=== PATIENT | female | born 1960 | race African-American/Black ===

== ENCOUNTER → 2019-06-06 13:54 | Outpatient (CLI) | payer OTHER, SELFPAY ==
[2019-06-06 14:52] LABS: Alanine Aminotransferase 36 U/L (12-78); Albumin Level 3.9 gm/dL (3.4-5.0); Albumin/Globulin Ratio 1.1 (1.1-1.8); Alkaline Phosphatase 101 U/L (46-116); Anion Gap 12.5 mEq/L (5-15); Aspartate Amino Transferase 32 U/L (15-37); Bilirubin,Total 0.6 mg/dL (0.2-1.0); Blood Urea Nitrogen 16 mg/dL (7-18); Calcium 9.7 mg/dL (8.5-10.1); Carbon Dioxide 28 mmol/L (21.0-32.0); Chloride 103 mmol/L (98-107); Chol/HDL Ratio 1.8 (1-3.5); Cholesterol 178 mg/dL (140-200); Creatinine,Serum 0.89 mg/dL (0.55-1.02); Estimated Glomerular Filt Rate 65 ml/min (>60); GFR (African American) 79 ML/MIN (>60); Globulin 3.5 gm/dl (1.3-3.2); Glucose 83 mg/dL (74-106); HDL Cholesterol 98 mg/dL (29-89); LDL Cholesterol 70 mg/dL (0-130); Potassium 3.5 mmoL/L (3.5-5.1); Sodium 140 mmol/L (136-145); T4 (Thyroxine) 11.4 ug/dl (4.7-13.3); Thyroid Stimulating Hormone 2.77 uIU/ml (0.358-3.740); Total Protein,Serum 7.4 gm/dL (6.4-8.2); Triglycerides 48 mg/dL (30-200); VLDL Cholesterol 10 mg/dL (0-40)
[2019-06-06 17:27] LABS: Basophils % 0.4 % (0.1-2.0); Eosinophils # 0.2 K/mm3 (0.0-0.4); Eosinophils % 5.1 % (0.1-12.0); Hematocrit 41.5 % (37.0-47.0); Hemoglobin 13.3 g/dL (12.2-16.2); Lymphocytes # 1.6 K/mm3 (0.7-4.5); Lymphocytes % 41.4 % (10-50); Mean Corpuscular HGB Conc 32.1 g/dL (31.8-35.4); Mean Corpuscular Hemoglobin 30.1 pg (27.0-31.2); Mean Platelet Volume 8.9 fl (7.4-10.4); Monocytes # 0.4 K/mm3 (0.1-1.0); Neutrophils # 1.6 K/mm3 (1.8-7.8); Platelet Count 207 K/mm3 (142-424); Red Blood Count 4.41 M/mm3 (4.20-5.40); Red Cell Distribution Width 13.4 % (11.5-17.5); White Blood Count 3.8 K/mm3 (4.8-10.8)
[2019-06-07 10:32] LABS: Vitamin D 25 Hydroxy 13.9 ng/mL (30.0-100.0)
== END ==
PROVIDERS: Visit Provider Nurse Practitioner Family
DX: I10 Essential (primary) hypertension (principal); E55.9 Vitamin D deficiency, unspecified
CPT/HCPCS: 80053; 80061; 82652; 84436; 84443; 85025

== ENCOUNTER → 2020-05-30 10:24 | Outpatient (CLI) | payer OTHER, SELFPAY ==
[2020-05-30 10:53] LABS: Eosinophils # 0.2 K/mm3 (0.0-0.4); Eosinophils % 4.5 % (0.1-12.0); Hematocrit 39.3 % (37.0-47.0); Hemoglobin 13.5 g/dL (12.2-16.2); Lymphocytes # 1.6 K/mm3 (0.7-4.5); Lymphocytes % 46.7 % (10-50); Mean Corpuscular HGB Conc 34.4 g/dL (31.8-35.4); Mean Corpuscular Volume 93.1 fl (81-99); Mean Platelet Volume 8.3 fl (7.4-10.4); Monocytes # 0.4 K/mm3 (0.1-1.0); Monocytes % 10.6 % (1.7-9.3); Neutrophils # 1.3 K/mm3 (1.8-7.8); Neutrophils % 37.3 % (37.0-80.0); Platelet Count 178 K/mm3 (142-424); Red Blood Count 4.22 M/mm3 (4.20-5.40); Red Cell Distribution Width 13.3 % (11.5-17.5); White Blood Count 3.4 K/mm3 (4.8-10.8)
[2020-05-30 11:23] LABS: Alanine Aminotransferase 28 U/L (12-78); Albumin Level 4.3 g/dl (3.5-5.0); Albumin/Globulin Ratio 1.3 (1.1-1.8); Alkaline Phosphatase 102 U/L (38-126); Anion Gap 10.1 mEq/L (5-15); Aspartate Amino Transferase 45 U/L (14-36); Bilirubin,Total 1.3 mg/dl (0.2-1.3); Blood Urea Nitrogen 15 mg/dl (7-17); Calcium 10.2 mg/dl (8.4-10.2); Carbon Dioxide 31 mmol/L (22.0-30.0); Chloride 102 mmol/L (98-107); Chol/HDL Ratio 1.8 (1-3.5); Cholesterol 193 mg/dl (140-200); Estimated Glomerular Filt Rate 64 ml/min (>60); GFR (African American) 78 ML/MIN (>60); Globulin 3.2 g/dL (1.3-3.2); Glucose 99 mg/dl (74-100); HDL Cholesterol 107 mg/dl (40-60); Potassium 4.1 mmoL/L (3.5-5.1); Sodium 139 mmol/L (136-145); Total Protein,Serum 7.5 g/dl (6.3-8.2); Triglycerides 43 mg/dl (30-150); VLDL Cholesterol 9 mg/dL (0-40)
[2020-05-30 11:40] LABS: 25-OH Vitamin D, Total 35.9 ng/mL (30-100); T4 (Thyroxine) 11.2 ug/dl (5.53-11.0)
[2020-05-30 11:54] LABS: Thyroid Stimulating Hormone 2.46 uIU/mL (0.465-4.68)
== END ==
PROVIDERS: Visit Provider Nurse Practitioner Family
DX: I10 Essential (primary) hypertension (principal); M79.671 Pain in right foot
CPT/HCPCS: 36415; 80053; 80061; 82306; 84436; 84443; 85025

== ENCOUNTER → 2020-06-01 12:27 | Outpatient (CLI) | payer OTHER, SELFPAY ==
--- NOTE | 2020-06-01 12:34 | XR_ITS ---
PROCEDURE: XR FOOT WT BEARING RT 3V CLINICAL INDICATION: pain COMPARISON: No exams were available for comparison FINDINGS: There is mild hallux valgus with osteoarthritic change of the 1st MTP joint. There is also valgus angulation of the proximal phalanx at the 2nd and 3rd digit. Osteoarthritic changes are present at the talonavicular and navicular cuneiform joint. There is a small calcaneal spur and Achilles enthesophyte. There is a rounded lucency along the posterior aspect of the talus at 6 mm with sclerotic margin. This could be either within the fibula or the talus. IMPRESSION: Hallux valgus with osteoarthritic changes with other nonspecific findings as described above Dictated by: Daniel Driscoll MD 06/01/2020 14:40 Daniel Driscoll MD in [place] 06/01/2020 14:40
--- NOTE | 2020-06-01 12:34 | XR_ITS ---
PROCEDURE: XR FOOT WT BEARING LT 3V CLINICAL INDICATION: pain COMPARISON: No exams were available for comparison FINDINGS: There is mild hallux valgus as well as lateral angulation at the proximal phalanx of the 2nd and 3rd digit. There is a short 4th metatarsal. No fracture or dislocation. IMPRESSION: Mild hallux valgus Short 4th metatarsal Dictated by: Daniel Driscoll MD 06/01/2020 14:41 Daniel Driscoll MD in [place] 06/01/2020 14:41
== END ==
PROVIDERS: PCP Emergency Medicine; Visit Provider Podiatrist
DX: M79.673 Pain in unspecified foot (principal)
CPT/HCPCS: 73630

== ENCOUNTER → 2022-02-21 13:11 | Outpatient (CLI) | payer OTHER, SELFPAY ==
--- NOTE | 2022-02-21 13:15 | XR_ITS ---
FINAL REPORT CLINICAL HISTORY: LT knee pain FINDINGS: LEFT KNEE Four views were obtained. There is no acute fracture or dislocation. There is tricompartmental degenerative joint disease. There is a large osteophyte about the lateral patella. An area of increased density in the distal femur could be a small enchondroma. There is no joint effusion. There is no soft tissue abnormality. IMPRESSION: Degenerative disease with no acute bony abnormality. Reviewed, Interpreted and Dictated by Nida Zhagn MD Transcribed by Trinidad Dove Authenticated by Nida Zhang MD on 02/21/2022 02:05:24 PM [facility]
== END ==
PROVIDERS: PCP Emergency Medicine
DX: M25.562 Pain in left knee (principal)
CPT/HCPCS: 73564

== ENCOUNTER 2022-02-21 14:19 | Outpatient (RCR) | payer OTHER, SELFPAY | END 2022-02-21 15:20 | disposition home or self-care (01) | LOC: PT 14:19 | PROVIDERS: Visit Provider Orthopaedic Surgery | DX: M25.562 Pain in left knee (principal) | CPT/HCPCS: 97760 ==

== ENCOUNTER → 2022-03-21 09:31 | Outpatient (CLI) | payer OTHER, SELFPAY ==
--- NOTE | 2022-03-21 09:44 | XR_ITS ---
FINAL REPORT CLINICAL HISTORY: knee pain COMPARISON: February 21, 2022 FINDINGS: LEFT KNEE: Three views of the left knee were obtained. There is no acute fracture or dislocation. 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 There are mild and moderate degenerative changes. There is a moderate joint effusion which has worsened since the prior exam. Soft tissues are unremarkable. IMPRESSION: Mild and moderate degenerative changes with no acute bony abnormality. Moderate joint effusion which has worsened since the prior exam. Reviewed, Interpreted and Dictated by Tee Valdes III, MD Transcribed by Poonam Izquierdo Authenticated and [facility]
== END ==
PROVIDERS: PCP Emergency Medicine; Visit Provider Orthopaedic Surgery
DX: M25.562 Pain in left knee (principal)
CPT/HCPCS: 73562

== ENCOUNTER 2022-05-26 10:30 | Outpatient (RCR) | payer OTHER, SELFPAY ==
--- NOTE | 2022-04-07 11:19 | HMH.PTOPEV ---
PT Outpatient Evaluation Rehab PT Outpatient Evaluation Start: 04/07/22 11:06 Freq: Status: Active Protocol: Document 04/07/22 11:09 JAREN (Rec: 04/07/22 11:19 JAREN [id number]) Electronically Signed By Jean-Claude Bess, PT 04/07/22 11:09 Outpatient Therapy Subjective History Subjective History Pt reports h/o chronic left knee pain beginning ~4 months ago. Pt reports insidious onset, medial aspect left knee pain, w/intermittent 'popping '. Recent xray of left knee has revealed degenrative changes mild to moderate. Pt reports left knee stiffness as well, and difficulty w/ prolonged standing/walking w/ full-duty work at [employer]. Chief Complaint Pain,Stiff,Clicks,Swelling Symptom Type Ache,Throb,Dull Symptoms Relieved By Rest/Positioning,Brace/Support Symptoms Aggravated By Standing,Physical Activity, Walking Prior Functional Limitations Standing,Walking,Stairs Current Functional Limitations Standing,Walking,Stairs Symptom Description Constant but Variable Level of pain today (0-10) 8 Pain scale - at its best (0-10) 8 Pain scale - at its worst (0-10) 8 Hip/Knee Eval Gait Observation General Gait Pattern Observation Antalgic Gait,Wide Based Gait Palpation Tenderness left Knee Palpation Finding Tenderness Knee Palpation Overall Comment 3/4 medial jt line MMT Hip Flexion Strength Grade 4- Good- Hip Abduction Strength Grade 4- Good- Hip Adduction Strength Grade 3+ Fair+ Hip Extension Strength Grade 4- Good- Hip External Rotation Strength Grade 4- Good- Hip Internal Rotation Strength Grade 4 Good Knee Extension Strength Grade 4- Good- Knee Flexion Strength Grade 4- Good- ROM Knee Flexion Active Range of Motion ( 15-90 degrees) Knee ROM Limitations Soft Tissue Tightness,Pain Effusion joint effusion knee exam standard left Mid - Patellar Circumerential Measure ( 37 cm) Special Tests Knee Valgus Stress Test Negative Left Knee Varus Stress Test Negative Left Knee Xiomara Test Positive Left Outpatient Therapy Assessment Impairments Problems/Impairmments Palpation Tenderness,Impaired Range of Motion,Impaired Strength,Impaired Gait Pattern ,Impaired Walking,Impaired Standing,Impaired Stair
--- NOTE | 2022-05-07 10:29 | HMH.RHREAS ---
Rehab Reassessment Rehab OP Re-assessment Start: 05/07/22 10:05 Freq: Status: Active Protocol: Document 05/07/22 10:23 JAREN (Rec: 05/07/22 10:29 JAREN [id number]) Electronically Signed By Jean-Claude Bess, PT 05/07/22 10:23 Rehab Re-assessment Subjective Subjective pt reports slight improvement in left knee pain level at 6/ 10 on VAS, however, still reports left knee stiffness. Objective Objective Notes AROM: LEFT KNEE FLX 10-100 MMT: LEFT KNEE FLX 4/5, L KNEE EXT 4/5, L HIP FLX 4/5, L HIP IR,ER 4/5 (PAIN WITH ER), L HIP ADD 4-/5 W/PAIN, L HIP ABD 4/5 TTP: LEFT KNEE MEDIAL JT LINE 2-3/4 GAIT: ANTALGIC, KNEE LOCKED IN ~15 DEGREES FLX Assessment Progress Assessment Slower Than Expected Assessment Notes SLIGHT IMPROVEMENT IN ROM AND STRENGTH Patient goals met STG'S 12/03 Goals Not Met STG'S 02/02, LTG'S 06/06 Plan Plan Pt to continue w/skilled P.T. to make further improvements in left knee ROM, strength, gait, and TTP to allow for optimal function Frequency of Therapy 1-2x/wk Duration of therapy 6-8wks Time and Billing Re-Eval Time 12 Re-Eval Billing Units 1 PHYSICIAN CERTIFICATION: I certify the specified therapy services for Sol Kent are required, authorized, and reviewed every 30 days.
== END 2022-05-26 10:35 | disposition home or self-care (01) ==
LOC: PT 10:30
PROVIDERS: PCP Emergency Medicine; Visit Provider Orthopaedic Surgery
DX: M25.562 Pain in left knee (principal)
CPT/HCPCS: 97010; 97014; 97035; 97110; 97140; 97163; 97164; G0283

== ENCOUNTER → 2022-05-30 10:15 | Outpatient (CLI) | payer OTHER, SELFPAY ==
--- NOTE | 2022-05-30 10:26 | XR_ITS ---
FINAL REPORT CLINICAL HISTORY: LEFT MEDIAL AND POSTERIOR KNEE PAIN COMPARISON: March 21, 2022 FINDINGS: Four views of the left knee reveal no evidence of fracture or dislocation. There are moderate degenerative changes. There is lateral subluxation of the tibia relative to the distal femur. A small joint effusion is present. There is chronic calcification along the lateral patella. Mild vascular calcifications are present. IMPRESSION: Moderate degenerative changes. Reviewed, Interpreted and Dictated by Tee Valdes III, MD Transcribed by Andrea Winters Authenticated and [facility]
== END ==
PROVIDERS: PCP Emergency Medicine; Visit Provider Orthopaedic Surgery
DX: M25.562 Pain in left knee (principal)
CPT/HCPCS: 73562

== ENCOUNTER → 2022-10-10 09:06 | Outpatient (CLI) | payer OTHER, SELFPAY ==
--- NOTE | 2022-10-10 09:09 | XR_ITS ---
FINAL REPORT CLINICAL HISTORY: lateral knee pain. no known injury COMPARISON: 05/30/2022 FINDINGS: LEFT KNEE Three views of the left knee were obtained. There is no acute fracture or dislocation. Visualized joint spaces are normally aligned. There are moderate to severe degenerative changes. There is severe medial compartment narrowing. There is a chronic deformity of the lateral patella. There is a small joint effusion. Soft tissues are unremarkable. IMPRESSION: Moderate to severe degenerative change with severe medial compartment narrowing, similar to previous. Chronic deformity of the lateral patella, stable. Reviewed, Interpreted and Dictated by Tee Valdes III, MD Transcribed by Trinidad Dove Authenticated and [facility]
== END ==
PROVIDERS: PCP Emergency Medicine; Visit Provider Orthopaedic Surgery
DX: M17.12 Unilateral primary osteoarthritis, left knee (principal)
CPT/HCPCS: 73562

== ENCOUNTER 2023-12-04 09:43 | Outpatient (CLI) | payer OTHER, SELFPAY ==
[2023-12-04 10:14] LABS: Basophils % 0.5 % (0.1-2.0); Eosinophils # 0.1 K/mm3 (0.0-0.4); Eosinophils % 1.4 % (0.1-12.0); Hematocrit 44.1 % (37.0-47.0); Hemoglobin 14.3 g/dL (12.2-16.2); Lymphocytes # 2.9 K/mm3 (0.7-4.5); Lymphocytes % 36.3 % (10-50); Mean Corpuscular HGB Conc 32.4 g/dL (31.8-35.4); Mean Corpuscular Hemoglobin 32.2 pg (27.0-31.2); Mean Corpuscular Volume 99.3 fl (81-99); Mean Platelet Volume 8.6 fl (7.4-10.4); Monocytes # 0.6 K/mm3 (0.1-1.0); Monocytes % 8.1 % (1.7-9.3); Neutrophils # 4.2 K/mm3 (1.8-7.8); Neutrophils % 53.7 % (37.0-80.0); Platelet Count 200 K/mm3 (142-424); Red Blood Count 4.44 M/mm3 (4.20-5.40); Red Cell Distribution Width 13.3 % (11.5-17.5); White Blood Count 7.8 K/mm3 (4.8-10.8)
--- NOTE | 2023-12-04 10:23 | XR_ITS ---
FINAL REPORT CLINICAL HISTORY: R Foot pain COMPARISON: None FINDINGS: RIGHT FOOT: Three views of the right foot were obtained. There is no acute fracture or dislocation. There is a hallux valgus deformity present. Mild degenerative changes are present as well as plantar calcaneal spurs. There is no soft tissue abnormality. IMPRESSION: No acute bony abnormality. Hallux valgus deformity, with mild degenerative changes. Reviewed, Interpreted and Dictated by Tee Valdes III, MD Transcribed by Natalie Mittal Authenticated and [facility]
[2023-12-04 10:45] LABS: Erythrocyte Sedimentation Rate 38 mm/hr (0-30)
[2023-12-04 11:03] LABS: Alanine Aminotransferase 28 U/L (12-78); Albumin Level 4.4 g/dl (3.5-5.0); Albumin/Globulin Ratio 1.5 (1.1-1.8); Alkaline Phosphatase 110 U/L (38-126); Anion Gap 11.5 mEq/L (5-15); Aspartate Amino Transferase 35 U/L (14-36); Bilirubin,Total 0.7 mg/dl (0.2-1.3); Blood Urea Nitrogen 25 mg/dl (7-17); Calcium 9.6 mg/dl (8.4-10.2); Carbon Dioxide 28 mmol/L (22.0-30.0); Chloride 106 mmol/L (98-107); Chol/HDL Ratio 2.5 (1-3.5); Cholesterol 219 mg/dl (140-200); Estimated Glomerular Filt Rate 63 ml/min (>60); GFR (African American) 77 ML/MIN (>60); Glucose 94 mg/dl (74-100); HDL Cholesterol 88 mg/dl (40-60); Potassium 3.5 mmoL/L (3.5-5.1); Sodium 142 mmol/L (136-145); Total Protein,Serum 7.4 g/dl (6.3-8.2); Triglycerides 72 mg/dl (30-150); Uric Acid 4.2 mg/dl (2.5-6.2); VLDL Cholesterol 14 mg/dL (0-40)
[2023-12-04 11:14] LABS: Direct LDL Cholesterol 81.35 mg/dL (100-129)
[2023-12-04 11:20] LABS: 25-OH Vitamin D, Total 18.8 ng/mL (30-100)
[2023-12-04 11:33] LABS: Thyroid Stimulating Hormone 9.07 uIU/mL (0.465-4.68)
[2023-12-05 15:50] LABS: RA Latex Turbid. <10.0 IU/mL (<14.0)
[2023-12-09 23:46] LABS: Antinuclear Antibodies, IFA Positive
== END 2023-12-04 23:59 ==
LOC: LAB 09:44
PROVIDERS: PCP Nurse Practitioner Family; Visit Provider Nurse Practitioner Family
DX: E78.5 Hyperlipidemia, unspecified (principal); E55.9 Vitamin D deficiency, unspecified; M79.671 Pain in right foot; Z68.25 Body mass index [BMI] 25.0-25.9, adult
CPT/HCPCS: 36415; 73630; 80053; 80061; 82306; 84443; 84550; 85025; 85651; 86038; 86431

== ENCOUNTER 2023-12-26 09:20 | Emergency (ER) | payer OTHER, SELFPAY ==
[2023-12-26 09:29] VITALS: BP 166/91; PULSE 66; RESP 20; O2SAT 100
[2023-12-26 09:40] VITALS: BP 160/94; PULSE 73; RESP 20; TEMP 36.6; O2SAT 99; BMI 25.0
[2023-12-26 09:54] VITALS: BP 143/92; PULSE 59; O2SAT 100
[2023-12-26] MEDS: OXYCODONE 5MG IMMEDIATE RELEASE TABLET 5 MG PO (09:54)
[2023-12-26] MEDS: METHOCARBAMOL 500MG TABLET 500 MG PO (09:54)
[2023-12-26] MEDS: ACETAMINOPHEN 500MG TAB 1000 MG PO (09:54)
[2023-12-26] MEDS: KETOROLAC 30MG/ML VIAL 30 MG IM (09:54)
--- NOTE | 2023-12-26 09:54 | ED_ITS ---
Discharge Plan Disposition Patient Disposition: Home, Self-Care Condition: Good Prescriptions Prescriptions: New methocarbamol 500 mg tablet 500 mg PO Q8H Qty: 90 0RF lidocaine [Lidoderm] 5 % adhesive patch,medicated 1 patch topical DAILY Qty: 30 0RF Rx Instructions: leave on most painful area for up to 12 hrs prednisone 20 mg tablet 40 mg PO DAILY 5 Days Qty: 10 0RF No Action prednisone 20 mg tablet 20 mg PO BID 5 Days Qty: 10 0RF meloxicam 7.5 mg tablet See Rx Instructions .ROUTE .COMPLEX Qty: 90 0RF Dose Instruction: Take 1 tablet by mouth once daily Rx Instructions: Take 1 tablet by mouth once daily patient needs an appt before anymore refills atorvastatin 10 mg tablet See Rx Instructions .ROUTE .COMPLEX Qty: 90 0RF Dose Instruction: Take 1 tablet by mouth once daily Rx Instructions: Take 1 tablet by mouth once daily lisinopril-hydrochlorothiazide 20-12.5 mg tablet See Rx Instructions .ROUTE .COMPLEX Qty: 30 0RF Dose Instruction: TAKE 1 TABLET BY MOUTH ONCE DAILY . APPOINTMENT REQUIRED FOR FUTURE REFILLS Rx Instructions: TAKE 1 TABLET BY MOUTH ONCE DAILY . APPOINTMENT REQUIRED FOR FUTURE REFILLS naproxen 500 mg tablet See Rx Instructions .ROUTE .COMPLEX Qty: 30 0RF Dose Instruction: Take 1 tablet by mouth twice daily Rx Instructions: Take 1 tablet by mouth twice daily Referrals Follow up/Referrals: Nemesio Navarro MD [Staff Physician] - See instructions Abram Purvis APRN [Primary Care Provider] - See instructions Activity Restrictions/Add. Instructions Additional Instructions/Restrictions: You were seen in the ED today due to sciatica. Prescription for muscle relaxers and lidocaine patches have been provided. Short course of steroids has also been provided. Please follow-up with primary care provider and pain management. Return to the ED if symptoms worsen or if new concerning symptoms arise. Thank you. Clinical Impressions Clinical Impression: Sciatica of left side Instructions Patient Instructions: DI for Low Back Pain, DI for Back Pain With Sciatica Discharge ED Provider: Hugo Devi Adult HPI General Chief complaint: Back Pain/Injury Stated complaint: back/leg pain, no accident Time Seen by Provider: 12/26/23 09:36 Mode of Arrival: Wheelchair Source of Information: Patient Limitations: No Limitations Description of Symptoms (Recalled from ER Triage Doc. by RN): pt states she has had severe L lower back pain x3d. pt states the back pain radiates down her L leg, is sharp in nature and a 10/10. pt denies injury. pt denies urinary symptoms. History of Present Illness HPI narrative: Patient is a 63-year-old female with history of HTN, HLD who presents due to back pain. Patient's friend is present to help provide history. Patient reports pain has been present for the past 3 days. States she is having left- sided lower back pain which radiates down the posterior side of her left leg down to the foot. States she has been ambulatory but with difficulty. States she has been taking ibuprofen at home for symptoms. Denies any history of similar pain. Denies any preceding trauma. Denies any lower extremity weakness, saddle anesthesia, bowel/bladder incontinence. Related Data Previous Rx's Medication Instructions Recorded meloxicam 7.5 mg tablet See Rx Instructions .Route 08/03/23 .COMPLEX #90 tabs atorvastatin 10 mg tablet See Rx Instructions .Route 10/09/23 .COMPLEX #90 tabs prednisone 20 mg tablet 20 mg PO BID 5 days #10 tabs 11/27/23 lisinopril 20 See Rx Instructions .Route 12/08/23 mg-hydrochlorothiazide 12.5 mg .COMPLEX #30 tabs tablet naproxen 500 mg tablet See Rx Instructions .Route 12/14/23 .COMPLEX #30 tabs lidocaine 5 % topical patch 1 patch topical DAILY #30 ea 12/26/23 (Lidoderm) methocarbamol 500 mg tablet 500 mg PO Q8H #90 tabs 12/26/23 prednisone 20 mg tablet 40 mg (2 x 20 mg) PO DAILY 5 days 12/26/23 #10 tabs Allergies Allergy/AdvReac Type Severity Reaction Status Date / Time No Known Allergies Allergy Verified 12/26/23 09:46 [facility] Disclaimer: The information contained in this section may have been updated after the patient was seen, as this information can be updated by other users. 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 HTN (hypertension), benign Hyperlipidemia Family History Other Cancer Diabetes Heart attack Social History Smoking Status: Never smoker alcohol intake: never substance use type: denies use current occupational status: employed Travel in the last 8 weeks: None ROS Obtained: Yes All systems reviewed & no additional complaints except as documented Musculoskeletal Musculoskeletal: Reports back pain Physical Exam General General appearance: alert and in no apparent distress Head Head exam: atraumatic, normocephalic and normal inspection Eye Eye exam: Present normal appearance, PERRL and EOMI ENT ENT exam: Present normal exam, normal oropharynx, mucous membranes moist, TM's normal bilaterally and normal external ear exam Neck Neck exam: Present normal inspection, full ROM and trachea midline; Absent men ingismus or lymphadenopathy Chest Chest inspection: Present normal inspection and symmetric chest wall rise; Absent tenderness Respiratory Respiratory exam: Present normal lung sounds bilaterally; Absent respiratory distress Cardiovascular Cardiovascular exam: Present regular rate and normal rhythm; Absent JVD Abdominal Exam Abdominal exam: Present soft and normal bowel sounds; Absent distention, tend erness or guarding Extremities Exam Extremities exam: Present normal inspection, full ROM and normal capillary refill; Absent calf tenderness Back Exam Back exam: Present normal inspection and sciatic notch tenderness (L); Absent tenderness Comment: Left paraspinal lumbar tenderness. No midline tenderness. Ambulatory independently. No lower extremity weakness. Neurological Exam Neurological exam: Present alert and oriented X3 Psychiatric Psychiatric exam: Present normal affect and normal mood Skin Skin exam: Present warm, dry, intact and normal color Lymphatic Lymphatic Findings: no adenopathy Medical Decision Making Yemi Inquiry Pt receiving controlled substance: No Yemi was queried for this patient: No Vital Signs: 12/26/23 09:29 12/26/23 09:40 12/26/23 09:54 Temperature 98 F Temperature Source Oral Pulse Rate 66 59 L Pulse Rate [Left] 73 Respiratory Rate 20 20 Blood Pressure 166/91 H 143/92 H Blood Pressure [Right Arm] 160/94 H Blood Pressure Mean 109 Blood Pressure Mean [Right Arm] 116 Blood Pressure Source [Right Arm] Automatic Cuff Blood Pressure Position [Right Arm] Sitting 02 Sat by Pulse Oximetry 100 99 100 Oxygen Delivery Method Room Air Room Air Orders (Tests/Meds): ED MEDICATIONS Discontinued Medications Generic Name Dose Route Start Last Admin Trade Name Freq PRN Reason Stop Dose Admin Acetaminophen 1,000 mg 12/26/23 09:44 12/26/23 09:54 Acetaminophen 500mg Tab PO 03/30/24 09:45 1,000 mg ONCE ONE Administration Ketorolac Tromethamine 30 mg 12/26/23 09:44 12/26/23 09:54 Ketorolac 30mg/Ml Vial IM 12/26/23 09:45 30 mg ONCE ONE Administration Lidocaine 1 each 12/26/23 09:44 12/26/23 10:00 Lidocaine 5% Transdermal Patch TP 12/26/23 09:45 1 each ONCE ONE Administration Methocarbamol 500 mg 12/26/23 09:45 12/26/23 09:54 Methocarbamol 500mg Tablet PO 12/26/23 09:46 500 mg ONCE ONE Administration Oxycodone HCl 5 mg 12/26/23 09:45 12/26/23 09:54 Oxycodone 5mg Immediate Release Tablet PO 12/26/23 09:46 5 mg ONCE ONE Administration Medical Decision Narrative: In summary, patient is 63-year-old female with history of HTN, HLD, evaluated in the emergency department today due to left-sided back pain. On arrival, patient is hypertensive, hemodynamically stable. On examination, patient has left sciatic notch tenderness. Differential diagnosis includes but is not limited to sciatica, musculoskeletal strain, spinal fracture, cauda equina syndrome. Patient given topical Lidoderm patch, IM Toradol, oral Tylenol, oral Robaxin, oral oxycodone. On reevaluation, patient reports improvement in symptoms and is ambulatory independently. Patient's symptoms are most consistent with sciatica. She is appropriate for discharge at this time. Patient counseled on home care and physical therapy discussed. Referrals for primary care and pain management provided. Prescriptions for Robaxin, Lidoderm patches, course of prednisone provided. Patient counseled on home care, given strict return precautions and agreeable to plan. Additional history was provided by patient's friend. I considered the utility of obtaining imaging, but decided against this because this would not international exchange coordinator. I considered the utility of treatment with prescription for narcotics, but decided against this because risks outweigh benefits. I considered admitting the patient to the hospital for pain control, and in shared decision-making with patient, decided on outpatient management. Critical Care Critical Care Time Critical Care Time: No
[2023-12-26] MEDS: LIDOCAINE 5% TRANSDERMAL PATCH 1 EACH TP (10:00)
--- NOTE | 2023-12-26 10:22 | PC.NURSE ---
pt rounded on by Kelly MCNAMARA, pt states she is feeling better.
[2023-12-26 10:30] VITALS: BP 149/84; PULSE 56; RESP 18; O2SAT 100
[2023-12-26 10:57] VITALS: BP 149/84; PULSE 56; RESP 16; TEMP 36.6
== END 2023-12-26 10:58 | disposition home or self-care (01) ==
PROVIDERS: Emergency Provider Student in an Organized Health Care Education/Training Program; PCP Nurse Practitioner Family
DX: M54.32 Sciatica, left side (principal); I10 Essential (primary) hypertension; E78.5 Hyperlipidemia, unspecified
CPT/HCPCS: 96372; 99283

== ENCOUNTER 2023-12-30 09:27 | Outpatient (POV) | payer OTHER, SELFPAY ==
[2023-12-30 10:00] VITALS: BP 152/82; PULSE 65; RESP 18; O2SAT 96; BMI 25.0
--- NOTE | 2023-12-30 10:28 | A.OFFVIS_ITS ---
HPI Data of Consult Patient: new to practice Consult date: 12/30/23 Requesting Physician: Evon Collier APRN Primary Care Provider: Abram Purvis APRN Consult Narrative Reason for consult: Low back pain, left knee pain, left hip pain History of present illness: Ms. Kent is a 63 year old female who presents today as a new patient. She is a referral from the ER. Patient states that she is experiencing severe pain in her low back along the left side and into her left hip. Patient does describe this as an aching, throbbing sensation with numbness and tingling. Patient denies any specific trauma or injury that initially led to her symptoms. She does also state that she has chronic pain in her left knee and has had imaging in the past such as x-rays but did not like any advanced imaging. Patient does state that her pain in her low back and hip is causing severe disability. She states that she cannot walk or stand for prolonged time frames or prolonged sitting due to the pain. Patient does state the pain interferes with her ability to perform activities of daily living such as cooking and cleaning. Patient has tried [id number] medications and heat and ice with minimal relief. Patient was prescribed lidocaine patches and methocarbamol 500 mg 3 times a day and states this is helping some. She is interested in any help we may be able to give. Patient denies any prior back history or imaging. Her Yemi has been reviewed and is appropriate. CC: Evon Collier APRN [facility] Disclaimer: The information contained in this section may have been updated after the patient was seen, as this information can be updated by other users. 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 HTN (hypertension), benign Hyperlipidemia Family History Other Cancer Diabetes Heart attack Social History (Updated 12/30/23 @ 10:01 by Gosia Li RN) Smoking Status: Never smoker alcohol intake: never substance use type: denies use current occupational status: employed Travel in the last 8 weeks: None Review of Systems Review of Systems Review of systems:: pertinent systems reviewed and negative unless documented below Review of systems (narrative): Review of Systems: General: No recent weight changes, no fever, no sleep disturbances Respiratory: No cough, no shortness of air, no recurring pulmonary infections Cardiovascular/peripheral vascular: No chest pain, no palpitations, no edema, no shortness of breath Gastrointestinal: No new onset incontinence, normal bowel movements reported Genitourinary: No new onset incontinence Musculoskeletal: Low back pain, left hip pain, left knee pain Psychiatric: [Normal mood/affect] Neurological: [Denies weakness in extremities], [denies balance issues] Meds Home Medications and Allergies Home Medications Medication Instructions Recorded Confirmed Type meloxicam 7.5 mg tablet See Rx Instructions .Route 08/03/23 12/30/23 Rx .COMPLEX #90 tabs atorvastatin 10 mg tablet See Rx Instructions .Route 10/09/23 12/30/23 Rx .COMPLEX #90 tabs prednisone 20 mg tablet 20 mg PO BID 5 days #10 tabs 11/27/23 12/30/23 Rx lisinopril 20 See Rx Instructions .Route 12/08/23 12/30/23 Rx mg-hydrochlorothiazide 12.5 mg .COMPLEX #30 tabs tablet naproxen 500 mg tablet See Rx Instructions .Route 12/14/23 12/30/23 Rx .COMPLEX #30 tabs lidocaine 5 % topical patch 1 patch topical DAILY #30 ea 12/26/23 12/30/23 Rx (Lidoderm) methocarbamol 500 mg tablet 500 mg PO Q8H #90 tabs 12/26/23 12/30/23 Rx prednisone 20 mg tablet 40 mg (2 x 20 mg) PO DAILY 5 days 12/26/23 12/30/23 Rx #10 tabs New Prescriptions to Start Prescriptions: Allergies Allergy/AdvReac Type Severity Reaction Status Date / Time No Known Allergies Allergy Verified 12/26/23 09:46 Objective Vital signs: Pulse Resp BP Pulse Ox O2 Del Method 65 18 152/82 H 96 Room Air 12/30/23 10:00 12/30/23 10:00 12/30/23 10:00 12/30/23 10:12/30/23 10:00 Narrative: Physical Exam: General: Alert and oriented x3, no acute distress, pleasant and cooperative Lungs: Respirations even and unlabored, symmetrical chest expansion Eyes: PERRL Musculoskeletal: Flexion and extension of lumbar [spine] somewhat guarded secondary to pain, [antalgic gait noted] point tenderness along left SI with positive left Jeff's, Suzanne's, Gaenslen's, compression and distraction exam Neurological: Speech clear, no gross sensory deficit Additional findings Additional findings: [facility] [address] [place] [address] XRay Report Signed Patient: Sol Kent MR#: [id number] : 1960 Acct:[id number] Age/Sex: 62 / F ADM Date: 10/10/22 Loc: RAD Attending Dr: Rodney Espitia JR, MD Ordering Physician: Rodney Espitia JR, MD Date of Service: 10/10/22 Procedure(s): XR knee LT 3V Accession Number(s): [id number] cc: Evaristo Camilo MD; Tee Valdes MD~ FINAL REPORT CLINICAL HISTORY: lateral knee pain. no known injury COMPARISON: 05/30/2022 FINDINGS: LEFT KNEE Three views of the left knee were obtained. There is no acute fracture or dislocation. Visualized joint spaces are normally aligned. There are moderate to severe degenerative changes. There is severe medial compartment narrowing. There is a chronic deformity of the lateral patella. There is a small joint effusion. Soft tissues are unremarkable. IMPRESSION: Moderate to severe degenerative change with severe medial compartment narrowing, similar to previous. Chronic deformity of the lateral patella, stable. Reviewed, Interpreted and Dictated by Tee Valdes III, MD Transcribed by Trinidad Dove Authenticated and [facility] Assessment and Plan *Assessment and plan (1) Sciatica of left side: Status: Acute Category: Medical Code(s): M54.32 - Sciatica, left side (2) Low back pain: Status: Acute Qualifiers: Chronicity: acute Back pain laterality: left Sciatica presence: with sciatica Sciatica laterality: sciatica of left side Qualified Code(s): M54.42 - Lumbago with sciatica, left side Category: Medical Code(s): M54.50 - Low back pain, unspecified (3) Left hip pain: Status: Acute Category: Medical Code(s): M25.552 - Pain in left hip (4) Arthritis of left knee: Status: Acute Category: Medical Code(s): M17.12 - Unilateral primary osteoarthritis, left knee (5) Left knee pain: Status: Acute Qualifiers: Chronicity: chronic Qualified Code(s): M25.562 - Pain in left knee; G89.29 - Other chronic pain Category: Medical Code(s): M25.562 - Pain in left knee Plan Patient is experiencing worsening pain in her low back and left hip with limited range of motion. Patient did have extreme point tenderness along her left SI with a positive left Jeff's, Suzanne's, Gaenslen's, compression and distraction exam. I discussed with the patient that she may benefit from left SI injection. Risk and benefits were discussed with patient and she would like to proceed forward with this plan of care. I will also order the patient a compounded cream and order x-ray imaging of her lumbar spine along with her left SI joint. I will proceed forward due to her chronic pain in her left knee with advanced imaging of MRI without contrast. Patient did have questions regarding being off work due to the severity of her pain. I have counseled the patient that that would be something her primary care provider would have to wait for the short- term disability, etc. Patient acknowledges understanding. Patient does state that her work does not allow them to work if there are any limitations and that she does get points off if she continues to call in and will eventually be fired. I have counseled her to discuss this with Dr. Purvis. Patient will be scheduled for left SI injection under fluoroscopy. Patient has been instructed to contact the clinic with any concerns before the next appointment. Dr. Navarro has reviewed this note and agrees with this plan of care. This note was dictated using voice recognition software and make contain errors or omissions.
--- NOTE | 2023-12-30 10:39 | XR_ITS ---
FINAL REPORT CLINICAL HISTORY: LBP,LT HIP PAIN,CHRONIC LT KNEE PAIN FINDINGS: SACROILIAC JOINTS Five views were obtained. There is no acute fracture or dislocation. There are mild degenerative changes. Sclerosis is seen in the medial iliac bones. No soft tissue abnormality is identified. IMPRESSION: Degenerative changes as above. Reviewed, Interpreted and Dictated by Tee Valdes III, MD Transcribed by Cici Lopez Authenticated and [facility]
--- NOTE | 2023-12-30 10:39 | XR_ITS ---
FINAL REPORT CLINICAL HISTORY: .LBP, left hip pain FINDINGS: LUMBAR SPINE Five views demonstrate no acute fracture. There are mild and moderate degenerative changes with osteophytes. There is mild anterolisthesis of L4 on 5. Facet arthropathy is identified. IMPRESSION: Degenerative changes as above. Reviewed, Interpreted and Dictated by Tee Valdes III, MD Transcribed by Cici Lopez Authenticated and [facility]
== END 2023-12-30 23:59 ==
PROVIDERS: PCP Nurse Practitioner Family; Visit Provider Nurse Practitioner Family
DX: M54.42 Lumbago with sciatica, left side (principal); M25.552 Pain in left hip; M17.12 Unilateral primary osteoarthritis, left knee; M25.562 Pain in left knee; G89.29 Other chronic pain; M46.1 Sacroiliitis, not elsewhere classified
CPT/HCPCS: 72110; 72202; 99202; G0463

== ENCOUNTER 2024-01-25 11:00 | Outpatient (RCR) | payer OTHER, SELFPAY ==
--- NOTE | 2024-01-04 13:56 | HMH.PTOPEV ---
PT Outpatient Evaluation Rehab PT Outpatient Evaluation Start: 01/04/24 12:59 Freq: Status: Active Protocol: Document 01/04/24 12:59 ALBERT (Rec: 01/04/24 13:56 ALBERT [id number]) E-signed By Evon Madrigal, PT Outpatient Therapy Subjective History Subjective History Pt is a 63 y/o female who reports insidious onset of left-sided low back and left posterior leg pain ~2 weeks ago. Pt denies known trauma or injury. Pt reports constant pain from her left posterior hip to her left ankle and constant numbness of her left chao to all of her toes. Pt also reports muscle spasms in the left leg at night time. Pt had a lumbar spine xray on 12/29/21 with findings of Five views demonstrate no acute fracture. There are mild and moderate degenerative changes with osteophytes. There is mild anterolisthesis of L4 on 5. Facet arthropathy is identified. Pt reports pain is aggravated by sitting, bending, prolonged standing, and sometimes walking. Pt reports she was prescribed a muscle relaxer, steroid pack, and lidocaine patches which she states helps with pain. Pt reports she received an injection in her L hip on which helped improve severity of overall pain. Pt denies b/b dysfunction, nauesa /vomiting, fevers, or night sweats. Pt reports she returns to her MD at the end of this month. Occupation: [employer], currently off work until January 26 due to LBP 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: Hypertension, Hyperlipidemia New diagnosis of cancer in past 12 No months? Chief Complaint Pain,Spasms,Paresthesia Symptom Type Sharp,Numbness Symptoms Relieved By Heat,Ice,Prescription Meds Symptoms Aggravated By Sitting,Standing,Bending/ Stooping,Twisting,Lifting Prior Functional Limitations None Current Functional Limitations Lifting,Housework,Standing, Sitting,Walking,Bending/ Stooping Symptom Description Constant but Variable Level of pain today (0-10) 7 Pain scale - at its best (0-10) 7 Pain scale - at its worst (0-10) 7 Lumbopelvic Eval Palapation tenderness bilateral lumbar spinal tenderness Yes: L2-L5 paraspinal tenderness Yes: L Lumbar/Sacral Palpation Findings Tenderness Lumbar/Sacral Palpation Overall Comment referral of pain into L hip at L4-5 Accessory Movement L-spine Vertebrae Accessory Movements Central P/A [place],Left P/A that Elicit Symptoms [place] L2 left L3 left L4 left L5 left S1 left Range of Motion Lumbar Spine Active Flexion Range of 65 Motion (degrees) Lumbar Spine Active Extension Range of 10 Motion (degrees) Left Lumbar Spine Lateral Flexion Active 10 Range of Motion (degrees) Right Lumbar Spine Lateral Flexion 10 Active Range of Motion (degrees) Manual Muscle Test Bilateral Knee Extension Strength Grade 5 Normal Knee Flexion Strength Grade 5 Normal Hip Flexion Strength Grade 4 Good Hip Abduction Strength Grade 4 Good Hip Adduction Strength Grade 4 Good Hip Extension Strength Grade 3 Fair Ankle Dorsiflexion Strength Grade 5 Normal DTR Rt Patellar 2+ Lt Patellar 2+ Rt Gastroc/Soleus 2+ Lt Gastroc/Soleus 2+ Altered Sensation Bilateral LE Dermatome Level L5,S1 Comment decreased light touch left compared to right Special Tests Hip Dickson (KIMBERLEE) Test Positive Left Hip Piriformis Test Negative Left Unilateral Straight Leg Raise (Lasegue) Positive Left Test Oswestry Index Section 1 Pain Intensity The pain comes and goes and is severe Section 2 Personal Care (Washing,Dresing) increase the pain, but I manage not to change my way of doing it Section 3 Lifting I can only lift very light weights at most Section 4 Walking I cannot walk more than 1/2 mile without increasing pain Section 5 Sitting Pain prevents me from sitting for more than 1/2 hour Section 6 Standing I cannot stand more than 10 minutes without increasing pain Section 7 Sleeping Because of my pain, my normal night's sleep is less than 4 hours Section 8 Social Life My social life is normal but increases the degree of pain Section 9 Traveling I get extra pain while traveling, but it does not compel me to seek al Section 10 Changing Degreee of Pain My pain seems to be getting better, but improvement is slow Score and Risk Level Oswestry Sc 29 Oswestry Risk Level Severe Disability Outpatient Therapy Assessment Impairments Problems/Impairmments Palpation Tenderness,Impaired Range of Motion,Impaired Strength,Impaired Walking, Impaired Standing,Impaired Sitting,Impaired Lifting, Impaired Household Care, Impaired Squatting,Impaired Bending,Impaired Work Activities,Subjective C/O Pain ,Impaired Self Care/Self Management Prognosis Rehab Potential Good Clinical Impression Consistent with Diagnosis Yes Short Term Goals Number of Weeks 3 Decrease Subjective C/O Pain Yes: Improve pain severity at worst to 5/10 to improve overall QOL Improve Self Care/Self Management Yes Patient to be Ind w/ HEP Yes St[employer] Goals Number of Weeks 6 Decreased Palpation Tenderness Yes: 1-2/4 TTP of L2-L5 SP and L paraspinals Increase Range of Motion Yes: Improve lumbar AROM flex to at least 80, ext & LF to 15 Increase Strength Yes: Improve BLE MMT to 4+-5/5 grossly to assist with function Improve Oswestry Score Yes: Improve score to 24 or less to improve overall QOL Decrease Subjective C/O Pain Yes: Improve pain severity at worst to 3/10 to improve overall QOL Outpatient Therapy Plan of Care Treatment Plan May Include Therapeutic Exercise Including Home Yes Exercise Program Manual Therapy Techniques Yes Neuromuscular Re-education Yes Therapeutic Activities to Return to Yes Previous Functional/Work Level ADL/Self Care Education Yes Mechanical Traction Yes Dry Needling Yes Thermal Modalities Yes Electrical Stimulation Yes Ultrasound/Phonophoresis Yes Iontophoresis Yes Massage Yes Group Therapy for Medicare Yes Eval/Re-Eval Yes Frequency Times per week 2 Duration Number of Weeks 4-6 Addendums This patient is a candidate for social No or vocational rehab? Patient/Guardian verbally acknowledges Yes understanding of treatment program and consents to further treatment? Patient/Guardian verbally acknowledges Yes understanding of diagnosis, prognosis and goals for treatment? Eval Complexity PT Charges 01085 - Low Complexity Shoulder/Elbow Eval Shoulder Objective Measurements Elbow Objective Measurements PHYSICIAN CERTIFICATION: I certify the specified therapy services for Sol Kent are required, authorized, and reviewed every 30 days.
== END 2024-01-25 11:05 | disposition home or self-care (01) ==
LOC: PT 11:00
PROVIDERS: Visit Provider Nurse Practitioner Family
DX: M54.42 Lumbago with sciatica, left side (principal)
CPT/HCPCS: 97010; 97014; 97110; 97163; 97530; G0283

== ENCOUNTER 2024-02-18 10:09 | Outpatient (CLI) | payer OTHER, SELFPAY ==
--- NOTE | 2024-02-18 10:14 | XR_ITS ---
FINAL REPORT CLINICAL HISTORY: left knee pain for a few years FINDINGS: LEFT KNEE 3 views of the left knee were obtained. There is no acute fracture or dislocation. There is marked medial compartment joint space narrowing with subchondral sclerosis and osteophyte formation. An ossific density seen along the lateral aspect of the patella which is well corticated and may be related to old trauma or unusual bipartite patella. IMPRESSION: Advanced medial compartment osteoarthritis. Ossific density along the lateral aspect of the patella which may be related to old trauma or unusual bipartite patella. Reviewed, Interpreted and Dictated by Feliz Sanon MD Transcribed by Janet Marroquin Authenticated and [facility]
== END 2024-02-18 23:59 | disposition home or self-care (01) ==
LOC: RAD 10:09
PROVIDERS: PCP Nurse Practitioner Family; Visit Provider Orthopaedic Surgery
DX: M25.562 Pain in left knee (principal)
CPT/HCPCS: 73562

== ENCOUNTER 2024-04-27 07:21 | Outpatient (CLI) | payer OTHER, SELFPAY ==
--- NOTE | 2024-04-27 | MR_ITS ---
FINAL REPORT CLINICAL HISTORY: lbp for 5-6 months. nki COMPARISON: None FINDINGS: Multiplanar MR imaging of the lumbar spine was performed without contrast. On the sagittal T2-weighted images, there is abnormal decreased signal throughout the lumbar discs. The vertebrae are of normal height. The vertebral alignment is normal. There is a large hemangioma in the L2 vertebra. L1-2: There is no significant canal stenosis or neural foraminal narrowing. L2-3: Mild diffuse disc bulge. Mild bilateral neuroforaminal narrowing. L3-4: Mild to moderate diffuse disc bulge. Mild to moderate bilateral neuroforaminal narrowing. L4-5: Moderate diffuse disc bulge. Bilateral facet hypertrophy. Moderate spinal canal compromise and bilateral neuroforaminal narrowing. L5-S1: Moderate diffuse disc bulge. Left paracentral disc protrusion. High-grade compromise left lateral recess best seen on image 23 of series 5. IMPRESSION: Left paracentral protrusion at L5-S1. Diffuse disc bulge at L4-5 with bilateral neuroforaminal narrowing Reviewed, Interpreted and Dictated by Feliz Sanon MD Transcribed by [address] Authenticated and [facility]
--- NOTE | 2024-04-27 07:21 | CT_ITS ---
FINAL REPORT TECHNIQUE: Thin section axial CT images with coronal and sagittal reformats were performed. This study was performed with techniques to keep radiation doses as low as reasonably achievable (ALARA). Individualized dose reduction techniques using automated exposure control or adjustment of mA and/or kV according to the patient''s size were employed. CLINICAL HISTORY: Pre- Op TKA COMPARISON: None FINDINGS: There is advanced medial compartment joint space narrowing. There is subchondral sclerosis and osteophyte formation in the medial joint margin. On the coronal reconstruction images, the entire left knee is not included in the [id number]. There is advanced lateral compartment joint space narrowing of the patellofemoral joint. 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 IMPRESSION: Advanced degenerative changes with subchondral sclerosis and osteophyte formation. Reviewed, Interpreted and Dictated by Feliz Sanon MD Transcribed by [address] Authenticated and [facility]
== END 2024-04-27 23:59 | disposition home or self-care (01) ==
LOC: RAD 07:21
PROVIDERS: PCP Nurse Practitioner Family; Visit Provider Orthopaedic Surgery
DX: M17.12 Unilateral primary osteoarthritis, left knee (principal); M54.50 Low back pain, unspecified
CPT/HCPCS: 72148; 73700

== ENCOUNTER 2024-06-01 12:07 | Outpatient (CLI) | payer OTHER, SELFPAY ==
--- NOTE | 2024-06-01 13:07 | ECG_ITS ---
APPROVED REPORT Exam: Resting ECG HR:64 bpm ECG Measurements Heart Rate 64 AXES WV 155 P 9 QRSd 84 QRS -19 QT 415 T 17 QTc 425 Conclusion SINUS RHYTHM VOLTAGE CRITERIA FOR LVH [MEETS CRITERIA IN ONE OF: R(aVL), S(V1), R(V5), R(V5/V6)+S(V1)] ABNORMAL ECG UNCONFIRMED REPORT Electronically signed by : Hero Beckham MD 06/03/2024 08:47:54
[2024-06-01 13:19] LABS: Chloride 105 mmol/L (98-107); Sodium 139 mmol/L (136-145)
[2024-06-01 13:20] LABS: Basophils % 0.8 % (0.1-2.0); Eosinophils # 0.1 K/mm3 (0.0-0.4); Eosinophils % 2.5 % (0.1-12.0); Hematocrit 41.5 % (37.0-47.0); Hemoglobin 13.2 g/dL (12.2-16.2); Lymphocytes % 41.7 % (10-50); Mean Corpuscular HGB Conc 31.9 g/dL (31.8-35.4); Mean Corpuscular Hemoglobin 31.2 pg (27.0-31.2); Mean Corpuscular Volume 97.7 fl (81-99); Monocytes # 0.4 K/mm3 (0.1-1.0); Monocytes % 8.4 % (1.7-9.3); Neutrophils # 2.2 K/mm3 (1.8-7.8); Neutrophils % 46.4 % (37.0-80.0); Platelet Count 175 K/mm3 (142-424); Red Blood Count 4.24 M/mm3 (4.20-5.40); White Blood Count 4.7 K/mm3 (4.8-10.8)
[2024-06-01 13:22] LABS: Blood Urea Nitrogen 23 mg/dl (7-17); Calcium 9.7 mg/dl (8.4-10.2); Carbon Dioxide 28 mmol/L (22.0-30.0); Creatinine Clearance Estimated 56 mL/min (50-200); Estimated Glomerular Filt Rate 63 ml/min (>60); GFR (African American) 77 ML/MIN (>60); Glucose 86 mg/dl (74-100)
== END 2024-06-01 23:59 | disposition home or self-care (01) ==
LOC: PREOP 12:09
PROVIDERS: PCP Nurse Practitioner Family; Visit Provider Orthopaedic Surgery
DX: Z01.818 Encounter for other preprocedural examination (principal); M17.12 Unilateral primary osteoarthritis, left knee
CPT/HCPCS: 80048; 85025; 93005

== ENCOUNTER 2024-06-13 12:24 | Observation (INO) | payer OTHER, SELFPAY ==
[2024-06-01 12:46] VITALS: BMI 21.9
[2024-06-13] VITALS (22 sets, daily range): BP systolic 126–139; BP diastolic 74–91; PULSE 59–80; RESP 14–22; TEMP 36.4–36.9; O2SAT 97–100
[2024-06-13] MEDS: LACTATED RINGERS 1000ML 1,000 ML 25 ML IV (07:00)
--- NOTE | 2024-06-13 07:26 | EXP.ANES.CKL ---
[facility] Disclaimer: The information contained in this section may have been updated after the patient was seen, as this information can be updated by other users. 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 HTN (hypertension), benign Hyperlipidemia Surgical History No history of previous surgery Family History Other Cancer Diabetes Heart attack Social History Smoking Status: Never smoker alcohol intake: never substance use type: denies use current occupational status: employed Travel in the last 8 weeks: None [facility] Anesthesia Checklist Patient Identification Patient Identification: Arm Band and Family Structural Data Admitted From: Home Planned Operative Procedure/s: Left Total Knee Replacement Consent for Planned Operative Procedure(s) Verified: Yes Verified Documents: Surgical Consent and History and Physical NPO Status Verified Time NPO: 00:00 Additional verifications Patient : No Anesthesia Reactions: No Hx Blood Transfusions: No Blood Transfusion Reaction: No Cephalosporin Allergy: No Previous Colonoscopy: No Airway Assessment Mallampati Score:: Class III C-Spine Mobility Assessed: Yes TMJ Mobility Assessed: Yes Dentition: Poor Dentition Neurological Assessment Level of Consciousness: Awake, Alert, Appropriate and Follows Commands Hx Seizures: No Numbness or tingling in extremities: No Anesthesia Plan Anesthesia Risk discussed: Yes ASA Class: II Anesthesia Type: General w/block
[2024-06-13] MEDS: CEFAZOLIN SODIUM 1 GM in 0.9 % SODIUM CHLORIDE 50 ML IV (08:35)
[2024-06-13] MEDS: TRANEXAMIC ACID IV ×2 (08:45→10:52)
[2024-06-13] MEDS: SODIUM CHLORIDE 0.9% IV ×2 (08:45→10:52)
[2024-06-13] MEDS: SODIUM CHLORIDE IRRIG SOLUTION 3,000 ML 25 ML IR (09:17)
--- NOTE | 2024-06-13 11:14 | P.OP_ITS ---
Date of procedure: 06/13/24 Pre-op Diagnosis:: End-stage osteoarthritis left knee Post-op Diagnosis:: Same Procedure performed:: Left total knee arthroplasty Surgeon:: Calvin Collier DO [employer] Teacher(s):: Bebeto HERNANDEZ AUDIO/VIDEO TECHNICIAN:: Brooks Santo Anesthesia: GETA and regional Estimated blood loss (mL): 25 Clinical Note:: Implants Medacta size 2 femur size 2 tibia 10 mm poly and a 1 asymmetrical patella poly Operative findings:: End-stage osteoarthritis Operative note:: Patient identified preoperatively. Left knee marked with yes my initials. Transported operative suite placed bilaterally in bed. Given general anesthesia. Airway secured. Left lower extremity was then prepped and draped normal sterile fashion. Once prepped and draped final operative timeout performed to identify proper patient procedure and extremity. Everyone involved in the case agreed. There were no counter indications to beginning. Did receive preoperative antibiotics with Ancef. Marking pen was utilized to gray plan midline incision over the knee. Esmarch was used to exsanguinate the extremity and pneumatic tourniquet was inflated to 300 mmHg. Knee was flexed. Skin knife was used to incise through skin dissection is taken down to identify the capsule of the knee and standard medial parapatellar approach was utilized. Patella was everted. Knee was flexed. Attention was then brought to the femur the meniscus on the medial and lateral knee were sacrificed ACL was sacrificed. Patient underwent preoperative CT planning for cutting guides for the [employer] knee system. The femoral model along with the distal femoral cutting guide was utilized. There was markings on the guide which corresponded to the perry that I made on the distal femur. This was pinned in the place and the distal femoral cut was performed and measured to be the appropriate size as preoperative planning required. The pin holes were drilled for the 4-in-1 cutting block. A size two 4-in-1 cutting block was then placed and pinned in the place anterior and posterior cuts were made anterior posterior chamfer cuts were made. The bone segments were removed. Size 2 femoral trial was impacted into place and gave good fit. Attention was then brought to the tibia the Medact[employer] knee templates for the tibia were also selected and the model was reviewed and the tibial guide was placed and pinned in the place. The tibial cut was made 3 mm off the medial side 8 mm off the lateral side. Flat cut on the tibia obtained. The tibial sizing guide was then selected size to pinned into place in the proper rotation. The cone was drilled and the punch was placed to hold the tibial tray in position. At that time the femoral trial was then selected again placed in the size 10 poly was selected and placed in the knee with a size 10 poly the knee was taken through range of motion flexion and extension and found to be in good stability both in flexion and extension. Preoperatively she had significant knee flexion contracture which resolved with cuts and size 10 poly to full knee extension. Attention was then brought to the patella. The patella clamp was utilized for osteotomy of the patella and the patella drill guide was placed and drilled a size 1 patella asymmetrical was selected and placed through range of motion and found to be very stable in the proper size. With all the implants in place knee was taken through range of motion and found to be very stable through flexion extension and mid flexion. Trial implants were removed copious irrigation performed with the Pulsavac. Final implants opened on the back table size 2 femur size 2 tibia 10 mm poly 1 size 1 patella asymmetrical. Once the final implants were opened the cement was mixed. The knee was then cemented into place with final implants starting with the tibia poly was impacted into place and then the femur was cemented into place. Knee was brought in extension all excess cement removed then the patella was cemented into place clamp was placed held in extension until the cement was hardened. Once the cement hardened the tourniquet was deflated hemostasis obtained with electrocautery irrigation repeated. The capsule repair was performed with a #1 running strata fix suture. Deep layers closed with 0 Vicryl. Subcutaneous with 2-0 Vicryl. Surgical clips in the skin for closure. Sterile dressing placed from toe to thigh patient waken anesthesia taken recovery. Condition: stable Disposition: PACU Complications:: None apparent
--- NOTE | 2024-06-13 11:29 | XR_ITS ---
FINAL REPORT CLINICAL HISTORY: s/p Left TKA COMPARISON: 02/18/2024 FINDINGS: Two views of the left knee were obtained. There are changes from interval knee arthroplasty. The hardware appears intact. No immediate complications are identified. Expected soft tissue changes from surgery are noted. Anterior surgical bonnie are present. IMPRESSION: Postsurgical changes without evidence of complication. Reviewed, Interpreted and Dictated by Nida Zhang MD Transcribed by [facility] Authenticated and [facility]
--- NOTE | 2024-06-13 11:34 | EXP.ANES.I ---
[facility] Anesthesia Record Part I Anesthesia Record I Intake, IV Amount: 1,400 Hydration: Adequate Estimated blood loss (mL): 30 Urine output (mL): 0 Blood Products used (#): none Blood Pressure: 127/84 SaO2: 98 Pulse Rate: 80 Airway Patency: Patent Respiratory Rate: 22 Temperature: 98.1 F Patient is:: Drowsy and Stable Stable to PACU at:: 11:32
[2024-06-13] MEDS: HYDROMORPHONE 2MG/ML SYRINGE 0.5 MG IV (11:55)
[2024-06-13] MEDS: KETOROLAC 30MG/ML VIAL 30 MG IV (12:07)
--- NOTE | 2024-06-13 12:42 | SW/DCPLANNER ---
Addendum entered by Tequila Ray 06/14/24 14:03: Patient plans to discharge home and return to [facility] outpatient PT services. Addendum entered by Sharron Encinas RN 06/14/24 09:19: Discussed DME needs at home upon discharge. Patient states she has walker and will not require any DME. Original Note: I spoke w/ this patient on 05/26/24 regarding discharge plans after left total knee procedure. Patient stated that she resides at home alone but has family and friends that help her. Patient plans to return back to [facility] for outpatient PT (requested morning time) and stated that she will have transportation. Patient did not have any other needs at the time of my follow up phone call. I will follow up w/ patient later this afternoon or tomorrow once therapy evaluation is completed.
[2024-06-13] MEDS: LACTATED RINGERS 1000ML 1,000 ML 100 ML IV (13:01)
--- NOTE | 2024-06-13 13:15 | HMH.PHAINT1 ---
Pharmacy Intervention Comments: MEDICATION RECONCILIATION COMPLETED ON PATIENT USING EXTERNAL FILL HISTORY FROM PHARMACY. -MOLLY CALVO, JEROMED
--- NOTE | 2024-06-13 13:42 | HMH.PTEV ---
Physical Therapy Evaluation Rehab PT IP Evaluation Start: 06/13/24 11:23 Freq: ONCE Status: Active Protocol: Document 06/13/24 13:36 [facility] (Rec: 06/13/24 13:41 [facility] [id number]) Subjective/History History History Pt is a 64 y/o female s/p L TKA 06/13/24. Subjective Subjective Pt awake and agreeable to PT evaluation. Pt lives at home alone with 1 LEANN. Pt usually IND with ambulation with use of SPC. Pt able to have family stay with her upon d/c home. Pt reports she owns a RW. Pt not driving prior. New diagnosis of cancer in past 12 No months? Rehab PT IP Eval Objective Appearance Patient Behavior Appropriate,Cooperative Patient Orientation Person,Situation Difficulty following instructions none Speech Pattern Clear Ambulation Patient Able to Ambulate No Balance Ability to Arise Able, uses arms to help Sitting Balance Steady, safe Standing Balance Unsteady Transfers Bed Transfer Ability Minimal x 2 (25% assist) Sit to Stand Bed Transfer Ability Minimal x 2 (25% assist) Rehab PT IP prob,goals,plan Problems Date of Evaluation: 06/13/24 PT IP Problems Bed Mobility,Transfers,Gait, Balance,Self care,Safety Rehab Potential Rehab Potential Good Equipment Needs Assistive Devices Rolling / Wheeled Walker Plan PT Intervention Plan Bed Mobility,Transfers,Gait, Balance,Self care,Safety, Therapeutic Exercise Other Intervention Plan 1-2 times PT Plan Frequency Daily Duration LOS Discharge Goals Bed Transfer Ability Supervision/Stand by Sit to Stand Chair Transfer Ability Supervision/Stand by Ambulation Assistive Device Rolling Walker Ambulation Distance (feet) 10 Discharge Plan PT Discharge Plan Initial physical therapy evaluation performed. Patient presents below baseline at this time in functional mobility, transfers, gait, and strength. Pt would benefit from skilled PT while at [facility] to prevent further functional decline and maximize safety with mobility. Pt able to stand but unable to ambulate at this time d/t safety concerns/LE buckling. Pt safe to d/c home when deemed medically necessary d/t current level of mobility, home set-up, and family support. PT recommending home health or OP PT services to address deficits. Eval Complexity Eval Charge Codes 91515 - Moderate Complexity PHYSICIAN CERTIFICATION: I certify the specified therapy services for Sol Dana Kent are required, authorized, and reviewed every 30 days.
--- NOTE | 2024-06-13 13:49 | HMH.OTEV ---
OT Inpatient Evaluation Rehab OT IP Evaluation Start: 06/13/24 11:23 Freq: ONCE Status: Active Protocol: Document 06/13/24 13:35 [facility] (Rec[facility] 06[facility]13[facility]24 [id number] Rehab OT IP Assessment Subjective History Pt oriented x3 on arrival. Pt admitted on 06/13/24 following left TKA. Subjective Sitting up feels much better. Prior to admission to hospital , pt reports living at home alone. Pt reports being independent with all ADLs and IADLs. Pt regularly uses a cane for functional mobility. Pt does not engage in driving. Pt reports that family will be staying with her to assist as needed. Objective Patient Orientation Place,Name,Birthday Right Upper Extremity Gross ROM WFL Left Upper Extremity Gross ROM WFL Bed Mobility bed mobility - supine/sit,bed mobility - rolling Assist Level Minimal x 2 (25% assist) Transfer Training Sit/Stand Transfer Assist Level Minimal x 2 (25% assist) Decrease in Endurance Yes Rehab OT IP prob,goals,plan Problems Date of Evaluation: 06/13/24 OT IP Problems Bed Mobility,Transfers,Balance ,Self care,Safety Rehab Potential Rehab Potential Good Equipment Needs Assistive Devices Rolling / Wheeled Walker Plan OT intervention Plan Bed Mobility,Transfers,Balance ,Self care,Safety,Therapeutic Exercise OT Plan Frequency Daily Duration LOS Discharge Goals Bed Mobility Ability Assistance x1 Sit to Stand Chair Transfer Ability Minimal x 1 (25% assist) Chair Transfer Ability Minimal x 1 (25% assist) Chair Transfer Technique Sit to/from Ambulatory Chair Transfer Assistive Devices Rolling Walker Feeding Ability Assist with Tray Set Up Lower Body Dressing Ability Moderate Assistance Upper Body Dressing Ability Minimal Assistance Bathing Ability Moderate Assistance Performing Toilet Hygiene Ability Minimal Assistance Overall Commode/Toilet Transfer Ability Moderate Assistance Commode/Toilet Transfer Technique Sit to/from Ambulatory Commode/Toilet Transfer Assistive Grab Bars Devices Oral Care Assist Standby Assistance Discharge Plan OT Discharge Plan Pt will be seen for OT services while at [facility]. Pt could return living at home once medically stable. However , pt would require 20/04 care and assistance from family. Therapist recommends HH evaluation or evaluation for outpatient PT services. Pt will also require a rolling walker to support safety and functional transfers. Continued skilled services are important to improve safety, endurance, ADL independence, balance, and functional transfers. Eval Complexity Eval Charge Codes 80239 - Moderate Complexity PHYSICIAN CERTIFICATION: I certify the specified therapy services for Sol Cortez Kent are required, authorized, and reviewed every 30 days.
[2024-06-13] MEDS: MORPHINE 2MG/ML SYRINGE 2 MG IV (15:30)
[2024-06-13] MEDS: SODIUM CHLORIDE 0.9% 10ML FLUSH SYRINGE 10 ML IV (15:30)
--- NOTE | 2024-06-13 18:00 | EXP.HPDC ---
General Admission date:: 06/13/24 Discharge date: 06/14/24 *Admission Date: 06/13/24 *Chief complaint: End-stage left knee osteoarthritis *History of present illness: 64-year-old female end-stage knee osteoarthritis failed extensive conservative treatment with significant degenerative changes and difficulty with daily activities such as walking wished undergo total knee arthroplasty and presented for such [facility] Disclaimer: The information contained in this section may have been updated after the patient was seen, as this information can be updated by other users. 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 HTN (hypertension), benign Hyperlipidemia Surgical History No history of previous surgery Family History Other Cancer Diabetes Heart attack Social History Smoking Status: Never smoker alcohol intake: never substance use type: denies use current occupational status: employed Travel in the last 8 weeks: None Review of Systems Review of Systems Review of systems:: pertinent systems reviewed and negative unless documented below Exam Data for Last 24 hours Vital signs and Labs for Last 24 Hours: Temp Pulse Resp BP Pulse Ox O2 Del Method 97.8 F 62 16 130/88 97 Room Air 06/13/24 16:45 06/13/24 16:45 06/13/24 16:45 06/13/24 16:45 06/13/24 16:54 06/13/24 16:54 Laboratory Results - last 24 hr 06/01/24 12:55: WBC Cancelled, Corrected WBC Cancelled, RBC Cancelled, Hgb Cancelled, Hct Cancelled, MCV Cancelled, MCH Cancelled, MCHC Cancelled, RDW Cancelled, Plt Count Cancelled, MPV Cancelled, Neut % (Auto) Cancelled, Lymph % (Auto) Cancelled, [place] % (Auto) Cancelled, Eos % (Auto) Cancelled, Baso % (Auto) Cancelled, Neut # (Auto) Cancelled, Lymph # (Auto) Cancelled, [place] # (Auto) Cancelled, Eos # (Auto) Cancelled, Baso # (Auto) Cancelled, Sodium Cancelled, Potassium Cancelled, Chloride Cancelled, Carbon Dioxide Cancelled, Anion Gap Cancelled, BUN Cancelled, Creatinine Cancelled, Estimated Creat Clear Cancelled, Estimated GFR Cancelled, Est GFR ( Amer) Cancelled, Glucose Cancelled, Calcium Cancelled I & O for Last 24 hours: Intake & Output 06/10/24 06/11/24 06/12/24 06/13/24 23:59 23:59 23:59 23:59 Intake Total 1400 / 1400 Output Total 700 / 700 Balance 700 / 700 *Routine HEENT Exam Head: Present normocephalic and atraumatic Eye: Present EOMI ENT: Present mucous membranes moist *Routine Neck Exam Neck: Present full ROM *Routine Respiratory Exam Respiratory: Absent accessory muscle use *Routine Cardiovascular Exam Cardiovascular: Present RRR *Routine Abdominal Exam Abdominal: Absent tenderness *Routine Rectal Exam Rectal:: deferred *Routine Genitalia Exam Genitalia:: deferred *Routine Extremities Exam Comments: Left knee dressing in place compartments soft no evidence of DVT grossly neurovasc intact wiggles toes no pain with range of motion. *Routine Skin Exam Skin: Present intact *Routine Neurological Exam Neurological: Present alert and oriented X3 Meds Home Medications and Allergies Home Medications ?Medication ?Instructions ?Recorded ?Confirmed ?Type atorvastatin 10 mg tablet 10 mg PO DAILY 06/13/24 06/13/24 History lisinopril 20 1 tab PO DAILY 06/13/24 06/13/24 History mg-hydrochlorothiazide 12.5 mg tablet aspirin 325 mg tablet 325 mg PO BID #90 tabs 06/14/24 Rx hydrocodone 5 mg-acetaminophen 325 1 tab PO Q4H PRN pain #42 tabs 06/14/24 Rx mg tablet New Prescriptions to Start Prescriptions: aspirin Calvin Collier hydrocodone-acetaminophen Calvin Collier Allergies Allergy/AdvReac Type Severity Reaction Status Date / Time No Known Allergies Allergy Verified 06/13/24 07:01 Hospital Course Hospital Course Hospital Course: Patient underwent uneventful total knee arthroplasty 06/13/2024. Was then admitted to the hospital physical therapy consulted found to be appropriate for outpatient transfer to home with home health. Patient unable to drive. Insurance coverage in adequate for home health so outpatient PT maintained in range. Patient was stable for discharge home on 06/14/2024. Discharge instructions with wound care given weightbearing as tolerated ice pain medication sent to the pharmacy show follow-up appointment in the clinic in 2 weeks. Results Data Completed and Pending Labs on day of discharge: Labs from last 24 hours 06/01/24 12:55 WBC Cancelled Corrected WBC Cancelled RBC Cancelled Hgb Cancelled Hct Cancelled MCV Cancelled MCH Cancelled MCHC Cancelled RDW Cancelled Plt Count Cancelled MPV Cancelled Neut % (Auto) Cancelled Lymph % (Auto) Cancelled [place] % (Auto) Cancelled Eos % (Auto) Cancelled Baso % (Auto) Cancelled Neut # (Auto) Cancelled Lymph # (Auto) Cancelled [place] # (Auto) Cancelled Eos # (Auto) Cancelled Baso # (Auto) Cancelled Sodium Cancelled Potassium Cancelled Chloride Cancelled Carbon Dioxide Cancelled Anion Gap Cancelled BUN Cancelled Creatinine Cancelled Estimated Creat Clear Cancelled Estimated GFR Cancelled Est GFR ( Amer) Cancelled Glucose Cancelled Calcium Cancelled DS: Diagnosis Discharge Diagnosis (1) Unilateral primary osteoarthritis, left knee: Status: Acute Code(s): M17.12 - Unilateral primary osteoarthritis, left knee Discharge Plan Disposition Patient Disposition: Home, Self-Care Condition: Good Follow up Plan Follow up with: [facility]Other[facility] - 06/15/24 11:00 am Calvin Collier DO [Staff Physician] - 06/28/24 10:30 am Prescriptions/Medication Reconciliation: New hydrocodone-acetaminophen 5-325 mg tablet 1 tab PO Q4H PRN (Reason: pain) Qty: 42 0RF aspirin 325 mg tablet 325 mg PO BID Qty: 90 1RF Continued atorvastatin 10 mg tablet 10 mg PO DAILY Patient Comments: TAKE 1 TABLET BY MOUTH ONCE DAILY lisinopril-hydrochlorothiazide 20-12.5 mg tablet 1 tab PO DAILY Patient Comments: TAKE 1 TABLET BY MOUTH ONCE DAILY Discontinued meloxicam 7.5 mg tablet 7.5 mg PO DAILY Patient Comments: TAKE 1 TABLET BY MOUTH ONCE DAILY . APPOINTMENT REQUIRED FOR FUTURE REFILLS Problem Reconciliation Problems Reviewed?: Yes Patient Discharge Instructions ACTIVITY: Ambulate as tolerated DIET: advance to your usual diet Additional Instructions: May remove dressing and change in 24 hours. Sterile dressing changes as needed with home health. Arrange home health physical therapy Patient Instructions: How to Care for a Surgical Wound, DI for Knee Replacement Print Language: Peruvian Providers Primary Care Provider: Abram Purvis Admit Provider: Calvin Collier Attending Provider: Calvin Collier
[2024-06-13] MEDS: HYDROCODONE/APAP 5/325 MG TABLET 2 TAB PO (18:19)
[2024-06-13] MEDS: KETOROLAC 30MG/ML VIAL 15 MG IV (20:43)
[2024-06-13] MEDS: ASPIRIN 325MG TABLET 325 MG PO (20:43)
[2024-06-14] VITALS (7 sets, daily range): BP systolic 104–157; BP diastolic 64–85; PULSE 63–68; RESP 16–18; TEMP 36.6–36.8; O2SAT 97–100
[2024-06-14] MEDS: LACTATED RINGERS 1000ML 1,000 ML 100 ML IV (02:17)
[2024-06-14] MEDS: HYDROCODONE/APAP 5/325 MG TABLET 2 TAB PO ×3 (02:21→14:48)
--- NOTE | 2024-06-14 05:00 | PC.NURSE ---
Pt has rested this shift comfortably, lung sounds clear bilaterally throughout, bowel sounds active in all quadrants, pt has voided multiple times on bedpan tonight. Lactated Ringers are infusion in IV, IV patent. pt has been medicated PRN throughout the night for knee pain from surgery. see EMAR. pt denies needs at this time
[2024-06-14] MEDS: MORPHINE 2MG/ML SYRINGE 2 MG IV (07:52)
--- NOTE | 2024-06-14 07:54 | P.PNANES_ITS ---
[facility] Anesthesia Record Part I Anesthesia Record I Intake, IV Amount: 2,100 Hydration: Adequate Estimated blood loss (mL): 100 Urine output (mL): 0 Blood Pressure: 135/85 SaO2: 97 Pulse Rate: 67 Airway Patency: Patent Respiratory Rate: 16 Temperature: 97.8 F Patient is:: Awake and Stable Stable to PACU at:: 12:02
[2024-06-14] MEDS: LISINOPRIL 20MG TABLET 20 MG PO (08:01)
[2024-06-14] MEDS: hydroCHLOROthiazide 12.5MG CAPSULE 12.5 MG PO (08:02)
[2024-06-14] MEDS: ATORVASTATIN 10MG TABLET 10 MG PO (08:02)
[2024-06-14] MEDS: ASPIRIN 325MG TABLET 325 MG PO (08:02)
[2024-06-14 08:06] LABS: Basophils % 0.2 % (0.1-2.0); Eosinophils # 0.1 K/mm3 (0.0-0.4); Eosinophils % 0.9 % (0.1-12.0); Hematocrit 35.7 % (37.0-47.0); Hemoglobin 11.6 g/dL (12.2-16.2); Lymphocytes # 1.6 K/mm3 (0.7-4.5); Lymphocytes % 20.2 % (10-50); Mean Corpuscular HGB Conc 32.4 g/dL (31.8-35.4); Mean Corpuscular Hemoglobin 31.6 pg (27.0-31.2); Mean Corpuscular Volume 97.6 fl (81-99); Monocytes # 0.8 K/mm3 (0.1-1.0); Neutrophils # 5.3 K/mm3 (1.8-7.8); Neutrophils % 68.7 % (37.0-80.0); Platelet Count 142 K/mm3 (142-424); Red Blood Count 3.66 M/mm3 (4.20-5.40); Red Cell Distribution Width 13.9 % (11.5-17.5); White Blood Count 7.8 K/mm3 (4.8-10.8)
[2024-06-14 08:14] LABS: Anion Gap 6.8 mEq/L (5-15); Blood Urea Nitrogen 15 mg/dl (7-17); Calcium 8.9 mg/dl (8.4-10.2); Carbon Dioxide 29 mmol/L (22.0-30.0); Chloride 105 mmol/L (98-107); Creatinine Clearance Estimated 56 mL/min (50-200); Estimated Glomerular Filt Rate 63 ml/min (>60); GFR (African American) 77 ML/MIN (>60); Glucose 97 mg/dl (74-100); Potassium 3.8 mmoL/L (3.5-5.1); Sodium 137 mmol/L (136-145)
[2024-06-14] MEDS: CEFAZOLIN SODIUM 1 GM in 0.9 % SODIUM CHLORIDE 50 ML IV (09:43)
--- NOTE | 2024-06-14 12:23 | PC.NURSE ---
Called PT at this time to see about coming to see patient after lunch to ensure she is safe to go home. Spoke with Catie.
--- NOTE | 2024-06-14 13:19 | PC.NURSE ---
Still awaiting for PT and care management to come see patient before discharging.
--- NOTE | 2024-06-14 13:30 | PC.NURSE ---
PT at bedside.
--- NOTE | 2024-06-14 14:51 | PC.NURSE ---
Patient reports pain in her left knee 10/10. Patient reports she does have someone to come and get her. Patient reports that she will call her ride. Patient is aware of her PT appointment tomorrow.
--- NOTE | 2024-06-14 15:09 | PC.NURSE ---
Addendum entered by Tiffani Davidson RN 06/14/24 15:12: Discharge still pending at this time to ensure patient has what she needs at home. Original Note: Went to discharge patient home and patient had questions regarding getting a wheelchair for home. Spoke with Bre in care management regarding patient's request. They reported that they will look into it to see if she qualifies for one. Patient updated on process and verbalized understanding.
--- NOTE | 2024-06-14 15:12 | PC.NURSE ---
Patient is requiring wheelchair at this time due to inability to ambulate with walker or cane. NAIMA Zuluaga
--- NOTE | 2024-06-14 15:16 | CARE MANAGER ---
Patient is requesting wheelchair upon discharge. Dr. Collier states he is good with this. Patient requests [facility]. Information sent to them.
--- NOTE | 2024-06-14 16:53 | PC.NURSE ---
Patient has since decided to not get a wheelchair from [facility] and that she is able to borrow one.
--- NOTE | 2024-06-14 17:27 | PC.NURSE ---
Waiting for ride at this time. Patient discharge teaching completed and verbalized understanding.
--- NOTE | 2024-06-15 14:10 | CARE MANAGER ---
Contacted patient related to hospital discharge. She states that she is doing better and has her new medications. She is also aware of follow up appointments and went to outpatient therapy this morning. NAIMA Zuluaga
== END 2024-06-14 17:43 | disposition home or self-care (01) ==
LOC: OB 12:26
PROVIDERS: Admitting Provider Orthopaedic Surgery; PCP Nurse Practitioner Family; Visit Provider Orthopaedic Surgery
PROC: (CPT 27447; principal; 2024-06-13 08:15)
DX: M17.12 Unilateral primary osteoarthritis, left knee (principal); I10 Essential (primary) hypertension; E78.5 Hyperlipidemia, unspecified
CPT/HCPCS: 27447; 36415; 73560; 80048; 85025; 96374; 97110; 97162; 97166; 97530; C1776; G0378; J0690; J1100; J1170; J1885; J2250; J2270; J2405; J3010; J7120

== ENCOUNTER 2024-06-28 10:06 | Outpatient (CLI) | payer OTHER, SELFPAY ==
--- NOTE | 2024-06-28 10:10 | XR_ITS ---
FINAL REPORT CLINICAL HISTORY: Left tka COMPARISON: 06/13/2024 FINDINGS: LEFT KNEE 3 views of the left knee were obtained. A total knee joint prosthesis is present. There is no acute fracture or dislocation. There is a moderate joint effusion. Visualized joint spaces are normally aligned. There are overlying skin bonnie. IMPRESSION: Postoperative changes without acute bony abnormality. Reviewed, Interpreted and Dictated by Feliz Sanon MD Transcribed by [facility] Authenticated and [facility]
== END 2024-06-28 23:59 | disposition home or self-care (01) ==
LOC: RAD 10:07
PROVIDERS: PCP Nurse Practitioner Family; Visit Provider Nurse Practitioner
DX: M25.562 Pain in left knee (principal)
CPT/HCPCS: 73562

== ENCOUNTER 2024-09-02 12:08 | Outpatient (CLI) | payer MEDICAID, SELFPAY ==
[2024-09-02 13:49] VITALS: BMI 21.2
[2024-09-02 14:20] LABS: Basophils % 0.7 % (0.1-2.0); Eosinophils # 0.1 K/mm3 (0.0-0.4); Eosinophils % 1.8 % (0.1-12.0); Hematocrit 39.9 % (37.0-47.0); Hemoglobin 13.6 g/dL (12.2-16.2); Lymphocytes # 1.3 K/mm3 (0.7-4.5); Lymphocytes % 36.7 % (10-50); Mean Corpuscular HGB Conc 34.1 g/dL (31.8-35.4); Mean Corpuscular Hemoglobin 31.2 pg (27.0-31.2); Mean Corpuscular Volume 91.6 fl (81-99); Mean Platelet Volume 8.2 fl (7.4-10.4); Monocytes # 0.5 K/mm3 (0.1-1.0); Monocytes % 12.9 % (1.7-9.3); Neutrophils # 1.7 K/mm3 (1.8-7.8); Neutrophils % 47.9 % (37.0-80.0); Platelet Count 166 K/mm3 (142-424); Red Blood Count 4.36 M/mm3 (4.20-5.40); Red Cell Distribution Width 13.5 % (11.5-17.5); White Blood Count 3.6 K/mm3 (4.8-10.8)
[2024-09-02 14:27] LABS: Anion Gap 8.7 mEq/L (5-15); Blood Urea Nitrogen 22 mg/dl (7-17); Calcium 10.1 mg/dl (8.4-10.2); Carbon Dioxide 29 mmol/L (22.0-30.0); Chloride 103 mmol/L (98-107); Creatinine Clearance Estimated 49 mL/min (50-200); Estimated Glomerular Filt Rate 56 ml/min (>60); GFR (African American) 68 ML/MIN (>60); Glucose 77 mg/dl (74-100); Potassium 3.7 mmoL/L (3.5-5.1); Sodium 137 mmol/L (136-145)
== END 2024-09-02 23:59 | disposition home or self-care (01) ==
LOC: PREOP 12:08
PROVIDERS: Nurse Anesthetist, Certified Registered; PCP Nurse Practitioner Family; Visit Provider Orthopaedic Surgery
DX: Z01.812 Encounter for preprocedural laboratory examination (principal)
CPT/HCPCS: 80048; 85025

== ENCOUNTER 2024-09-07 07:10 | Day surgery (SDC) | payer MEDICAID, SELFPAY ==
[2024-09-02 13:29] VITALS: BMI 21.2
[2024-09-07 07:33] VITALS: BP 127/83; PULSE 83; RESP 18; TEMP 36.8; O2SAT 100; BMI 21.2
[2024-09-07] MEDS: LACTATED RINGERS 1000ML 1,000 ML 100 ML IV (07:43)
--- NOTE | 2024-09-07 09:19 | EXP.OP.NOTE ---
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 Left knee marked yes my initials. Transferred operative suite. She had undergone a regional anesthesia block and then given anesthesia via IV the left knee was then manipulated slowly with a combination of flexion and extension alternating the motions there was a palpable tearing of the tissue the capsule which allowed increased range of motion of flexion and then knee was brought out in extension and slow traction was placed on the knee with pressure superior to the patella on the femur to allow for slow extension of the knee there was also release of the capsule in this motion with pressure was able to hyperextend the knee past 0 with mild pressure -5 degrees of extension. The knee was then slowly flexed and slowly extended and repeating nature in order to obtain range of motion of the knee adequate range of motion was obtained. Patient waken sedation taken recovery in stable condition. Condition: stable Disposition: PACU Complications:: None apparent
[2024-09-07 09:20] VITALS: BP 109/40; PULSE 81; RESP 16; TEMP 36.6; O2SAT 99
[2024-09-07 09:30] VITALS: BP 118/67; PULSE 92; RESP 16; O2SAT 99
[2024-09-07 09:50] VITALS: BP 134/71; PULSE 89; RESP 18; O2SAT 100
== END 2024-09-07 10:08 | disposition home or self-care (01) ==
PROVIDERS: PCP Nurse Practitioner Family; Visit Provider Orthopaedic Surgery
PROC: (CPT 27599; principal; 2024-09-07 08:15)
DX: M24.662 Ankylosis, left knee (principal)
CPT/HCPCS: 27599; J1100; J2250; J2405; J3010; J7120

== ENCOUNTER 2024-09-15 13:04 | Outpatient (CLI) | payer MEDICAID, SELFPAY ==
--- NOTE | 2024-09-15 13:08 | XR_ITS ---
FINAL REPORT CLINICAL HISTORY: left knee pain recent tka COMPARISON: 06/28/2024 FINDINGS: LEFT KNEE 3 views of the left knee were obtained. Post arthroplasty changes. There is no acute fracture. There is mild lateral patellar subluxation. Moderate sized joint effusion is noted. Osteopenia is present. Soft tissues are unremarkable. IMPRESSION: No acute bony or hardware abnormality. Reviewed, Interpreted and Dictated by Schuyler Echevarria MD Transcribed by [facility] Authenticated and [facility]
== END 2024-09-15 23:59 | disposition home or self-care (01) ==
LOC: RAD 13:05
PROVIDERS: PCP Nurse Practitioner Family; Visit Provider Orthopaedic Surgery
DX: M25.562 Pain in left knee (principal)
CPT/HCPCS: 73562

== ENCOUNTER 2024-09-27 13:00 | Outpatient (RCR) | payer MEDICAID, OTHER, SELFPAY ==
--- NOTE | 2024-06-15 12:26 | HMH.PTOPEV ---
PT Outpatient Evaluation Rehab PT Outpatient Evaluation Start: 06/15/24 10:58 Freq: Status: Active Protocol: Document 06/15/24 10:58 DENTON (Rec: 06/15/24 12:20 BILLYARMIN [id number]) E-signed By Agustina Cortez PT Outpatient Therapy Subjective History Subjective History This is an initial physical therapy evaluation for 64 y/o female, Sol Kent, who presents s/p L TKA on 06/13/24. Pt had her TKA at [facility] and denies complications. Pt was seen by acute care PT who provided an HEP handout. Pt ambulated into clinic using RW . Pt reports good compliance with her HEP packet. Pt reports no numbness or tingling. Reports everything is going well but limited by pain. Pt follows up with her surgeon on Jun 28. Pt reports she did not have full knee flexion or extension prior to surgery. Pt still presents with her JOSE/surgical wrapping . New diagnosis of cancer in past 12 No months? Chief Complaint Pain Symptom Type Ache Symptoms Relieved By Ice,Prescription Meds Symptoms Aggravated By Standing,Bending/Stooping, Physical Activity Prior Functional Limitations None Current Functional Limitations Lifting,Housework,Dressing, Driving,Standing,Sitting, Squatting,Recreation Activity, Walking,Stairs,Balance,Bending /Stooping Symptom Description Constant but Variable Level of pain today (0-10) 8 Pain scale - at its best (0-10) 5 Pain scale - at its worst (0-10) 10 Hip/Knee Eval Gait Observation General Gait Pattern Observation Antalgic Gait Assistive Device Assistive Devices Rolling / Wheeled Walker MMT left Hip Flexion Strength Grade 3+ Fair+ Hip Abduction Strength Grade 4- Good- Hip Adduction Strength Grade 4- Good- Hip Extension Strength Grade 4- Good- Knee Extension Strength Grade 4- Good- Knee Flexion Strength Grade 4- Good- ROM Knee Extension Active Range of Motion ( lacking 25 deg degrees) Knee Extension Passive Range of Motion ( lacking 22 deg degrees) Knee Flexion Active Range of Motion ( 70 degrees degrees) Knee Flexion Passive Range of Motion ( 77 degrees degrees) Knee ROM Limitations Soft Tissue Tightness,Pain Lower Extremity Functional Index Activities Today, do you or would you have any difficulty at all with: a.Any of your usual work, housework or Extreme difficulty or unable school activities to perform activity b. Your usual hobbies, recreational or Extreme difficulty or unable sporting activities to perform activity c. Getting into or out of the bath Extreme difficulty or unable to perform activity d. Walking between rooms Quite a bit of difficulty e. Putting on your shoes or socks Quite a bit of difficulty f. Squatting Extreme difficulty or unable to perform activity g. Lifting an object, like a bag of Extreme difficulty or unable groceries from the floor to perform activity h. Performing light activities around Extreme difficulty or unable your home to perform activity i. Performing heavy activities around Extreme difficulty or unable your home to perform activity j. Getting into or out of a car Extreme difficulty or unable to perform activity k. Walking 2 blocks Moderate difficulty l. Walking a mile Moderate difficulty m. Going up or down 10 stairs (about 1 Extreme difficulty or unable flight of stairs) to perform activity n. Standing for 1 hour Extreme difficulty or unable to perform activity o. Sitting for 1 hour Extreme difficulty or unable to perform activity p. Running on even ground Extreme difficulty or unable to perform activity q. Running on uneven ground Extreme difficulty or unable to perform activity r. Making sharp turns while running fast Extreme difficulty or unable to perform activity s. Hopping Extreme difficulty or unable to perform activity t. Rolling over in bed Extreme difficulty or unable to perform activity LEFI Score Lower Extremity Functional Index Score 6 Miscellaneous Dx PT Eval Objective Objective 5 x STS: 28 seconds Gait: RW with antalgic gait and impaired TKE (flexed L knee) Outpatient Therapy Assessment Impairments Problems/Impairmments Palpation Tenderness,Impaired Range of Motion,Impaired Strength,Impaired Endurance, Impaired Transfers,Impaired Gait Pattern,Impaired Walking, Impaired Standing,Impaired Sitting,Impaired Driving, Impaired Lifting,Impaired Dressing,Impaired Stair Climbing,Impaired Incline Stepping,Impaired Stepping on Uneven Surface,Impaired Squatting,Impaired Bending, Impaired Recreational Activities,Impaired Balance, Impaired TUG Time,Subjective C /O Pain Prognosis Rehab Potential Good Comment Pt presents s/p L TKA with impaired AROM, gait, and strength. Pt's L knee AROM 25- 70 degrees. Pt reports she did not have full L knee straightening or bending prior to surgery. Clinical Impression Consistent with Diagnosis Yes Consistent with L TKA Short Term Goals Number of Weeks 4 Increase Range of Motion Yes: Improve L knee AROM flexion to 80 degrees and extension to lacking 15 Increase Strength Yes: Improve L knee MMT to 4/5 to improve functional strength. Improve LEFI Score Yes: Improve by 10 points since IE to demo improved LE functioning. Decrease Subjective C/O Pain Yes: 48 hour pain average of Patient to be Ind w/ HEP Yes: Verbalize IND with HEP. Usp Goals Number of Weeks 10 Increase Range of Motion Yes: L knee flexion ROM 5-110 Increase Strength Yes: LLE 5/5 MMT strength Improve Gait Pattern without Assistive Yes: Ambulate without gait Device deviations and w/o AD. Improve Ability to Climb Stairs Yes: Negotiate 12 steps without HR to improve community navigation. Improve LEFI Score Yes: Improve to score of 30/80 Decrease Subjective C/O Pain Yes: 48 hour pain average of Patient to be Ind w/ Advanced HEP Yes: Verbalize IND with HEP. Outpatient Therapy Plan of Care Treatment Plan May Include Therapeutic Exercise Including Home Yes Exercise Program Manual Therapy Techniques Yes Neuromuscular Re-education Yes Therapeutic Activities to Return to Yes Previous Functional/Work Level Gait Training Yes ADL/Self Care Education Yes Thermal Modalities Yes Electrical Stimulation Yes Ultrasound/Phonophoresis Yes Iontophoresis Yes Orthotics/Bracing/Splinting Yes Vasopneumatic Compression Pump Yes Eval/Re-Eval Yes Frequency Times per week 2-3 times per week Duration Number of Weeks 8-10 weeks Addendums This patient is a candidate for social No or vocational rehab? Patient/Guardian verbally acknowledges Yes understanding of treatment program and consents to further treatment? Patient/Guardian verbally acknowledges Yes understanding of diagnosis, prognosis and goals for treatment? Eval Complexity PT Charges 79372 - Moderate Complexity Shoulder/Elbow Eval Shoulder Objective Measurements Elbow Objective Measurements PHYSICIAN CERTIFICATION: I certify the specified therapy services for Sol Kent are required, authorized, and reviewed every 30 days.
--- NOTE | 2024-07-15 15:04 | HMH.RHREAS ---
Rehab Reassessment Rehab OP Re-assessment Start: 06/15/24 10:58 Freq: Status: Active Protocol: Document 07/15/24 09:53 DENTON (Rec: 07/15/24 12:05 DENTON [id number]) E-signed By Agustina Cortez PT Lower Extremity Functional Index Activities Today, do you or would you have any difficulty at all with: a.Any of your usual work, housework or Quite a bit of difficulty school activities b. Your usual hobbies, recreational or Quite a bit of difficulty sporting activities c. Getting into or out of the bath A little bit of difficulty d. Walking between rooms A little bit of difficulty e. Putting on your shoes or socks A little bit of difficulty f. Squatting Quite a bit of difficulty g. Lifting an object, like a bag of A little bit of difficulty groceries from the floor h. Performing light activities around A little bit of difficulty your home i. Performing heavy activities around Quite a bit of difficulty your home j. Getting into or out of a car A little bit of difficulty k. Walking 2 blocks A little bit of difficulty l. Walking a mile Quite a bit of difficulty m. Going up or down 10 stairs (about 1 A little bit of difficulty flight of stairs) n. Standing for 1 hour A little bit of difficulty o. Sitting for 1 hour A little bit of difficulty p. Running on even ground Quite a bit of difficulty q. Running on uneven ground Quite a bit of difficulty r. Making sharp turns while running fast Quite a bit of difficulty s. Hopping Quite a bit of difficulty t. Rolling over in bed A little bit of difficulty LEFI Score Lower Extremity Functional Index Score 42 Rehab Re-assessment Subjective Subjective Pain: 5/10 average over past 48 hours HEP: Reports good compliance. It's getting there Pt reports she feels 50% better since IE. Pt has her next surgeon follow -up on Aug 09. Objective Objective Notes L knee PROM: - Extension: lacking 29 degrees - Flexion: 90 degrees 5 x STS: 10 seconds Gait: RW with antalgic gait and impaired TKE (flexed L knee) LLE strength: Hip FLEX = 4+/5 Hip ABD = 4+/5 Hip ADD = 4/5 Knee FLEX = 4/5 Knee EXT = 4/5 Assessment Progress Assessment Slower Than Expected Assessment Notes This is a reassessment for Sol Kent who presents to PT s/p L TKA on 06/13/24. Since IE, pt has been seen for 11 treatment visits that have consisted of modalities prn, education, and therapeutic exercises focusing on restoring ROM and strength. Pt with good attendance to scheduled PT visits and reports adherence to HEP. PT questioning compliance with HEP d/t some subjective reports and pt?s lack in progress with ext ROM. Since IE, pt with improvements in knee flexion ROM, LLE strength , and overall endurance. Pt has been ambulating using a SPC with impaired TKE. Pt still presents with impaired extension A/PROM and limited flexion AROM. PT obtained an order from surgeon for Dynasplint and contacted a Dynasplint workday financials consultant. PT faxed the requested PT paper work to the company in order to obtain Dynasplint consult for her knee (in process). Pt would continue to benefit from skilled outpatient physical therapy to address remaining deficits and achieve LTGs. Patient goals met ST) Improve L knee AROM flexion to 80 degrees and extension to lacking 15: Partially MET ( ext not met) 2) Improve L knee MMT to 4/5 to improve functional strength : MET 3) Improve by 10 points since IE to demo improved LE functioning: MET 4) 48-hour pain average of 4/ 10: MET 5) Verbalize IND with HEP: MET LTG: in progress. Revised Goals ROM: STG: Improve PROM L knee extension to lacking 20 degrees. LTG: Improve PROM L knee extension to lacking 10 degrees. Plan Plan Continue POC Frequency of Therapy 2-3x weekly Duration of therapy 6-8 weeks Time and Billing Re-Eval Time 10 Re-Eval Billing Units 1 PHYSICIAN CERTIFICATION: I certify the specified therapy services for Sol Kent are required, authorized, and reviewed every 30 days.
--- NOTE | 2024-08-12 16:32 | HMH.RHREAS ---
Rehab Reassessment Rehab OP Re-assessment Start: 06/15/24 10:58 Freq: Status: Active Protocol: Document 08/12/24 13:40 DENTON (Rec: 08/12/24 16:27 DENTON [id number]) E-signed By Agustina Cortez PT Lower Extremity Functional Index Activities Today, do you or would you have any difficulty at all with: a.Any of your usual work, housework or A little bit of difficulty school activities b. Your usual hobbies, recreational or Quite a bit of difficulty sporting activities c. Getting into or out of the bath Moderate difficulty d. Walking between rooms A little bit of difficulty e. Putting on your shoes or socks A little bit of difficulty f. Squatting Quite a bit of difficulty g. Lifting an object, like a bag of Quite a bit of difficulty groceries from the floor h. Performing light activities around A little bit of difficulty your home i. Performing heavy activities around A little bit of difficulty your home j. Getting into or out of a car A little bit of difficulty k. Walking 2 blocks A little bit of difficulty l. Walking a mile A little bit of difficulty m. Going up or down 10 stairs (about 1 A little bit of difficulty flight of stairs) n. Standing for 1 hour A little bit of difficulty o. Sitting for 1 hour A little bit of difficulty p. Running on even ground Quite a bit of difficulty q. Running on uneven ground Extreme difficulty or unable to perform activity r. Making sharp turns while running fast Extreme difficulty or unable to perform activity s. Hopping Extreme difficulty or unable to perform activity t. Rolling over in bed A little bit of difficulty LEFI Score Lower Extremity Functional Index Score 42 Rehab Re-assessment Subjective Subjective Pain: 4/10 average over past 48 hours HEP: Reports good compliance with HEP tasks. Dynasplint: Pt has been wearing her splint only an 1 hour a day. Educated pt on increasing her wearing time per Dynasplint instructions and to call her rep with any questions. Pt verbalized understanding. Pt reports she feels 0% better since last RA. Pt expressed mild frustration with her lack in progress with extension ROM. I have got to get this knee straightened out. I feel like something is wrong with it . Pt reports she has been released to return to work but does not feel ready to do so with her current mobility. Pt has her next surgeon follow -up on Sep 15. Objective Objective Notes L knee PROM: - Extension: lacking 25 degrees - Flexion: 93 degrees L knee AROM: - Extension: lacking 30 degrees - Flexion: 82 degrees Gait: RW with impaired TKE (L knee contracture). LLE strength: Hip FLEX = 5/5 Hip ABD = 5/5 Hip ADD = 5/5 Knee FLEX = 4+/5 Knee EXT = 4+/5 Assessment Progress Assessment Slower Than Expected Assessment Notes This is a reassessment for Sol Kent who presents to PT s/p L TKA on 06/13/24. Pt is 8 weeks s/p TKA and her available ROM at maximal PROM is 25-93 degrees. Since initial evaluation, pt has been seen for 22 treatment visits that have consisted of modalities prn, education, and therapeutic exercises focusing on ROM and strength. Primary focus of sessions since last RA have been restoring pt?s extension and flexion ROM. Pt received a Dynasplint for extension on Jul 25. Pt reports compliance with wearing her Dynasplint daily, however, reports she has only been wearing it 1 hour a day. Pt with good attendance to scheduled PT visits and reports adherence to HEP ( Questionable HEP compliance d/ t some subjective reports being inconsistent). Despite manual therapy, adherence to HEP (per pt report), addition of extension Dynasplint, and pt coming to therapy 3x a week , pt has made minimal progress with her extension ROM. It was noted that pt did have a flexion contracture prior to her surgery but pt reports it was not as severe as her current lack in ROM. Pt?s prognosis to achieve her extension ROM STG and LTG is fair- d/t her progress since IE and prior ROM deficit. This ROM deficit has made it difficult for pt to ambulate with proper gait, sit comfortably in a chair, and return to PLOF. Pt?s tolerance to manual therapy is decreasing d/t pain with manual and hard end-feel. Pt's flexion ROM has improved by 3 degrees and her extension has improved by 4 degrees since last RA. Additionally, pt demo 's good/functional LLE strength and now ambulates without an AD. PT educated pt on her slow progress, importance of getting full use of her Dynasplint, and maximizing adherence to HEP. Pt verbalized understanding. Pt would benefit from skilled PT 3x a week for 4-5 more weeks to continue working on ROM with goal to achieve functional range. Patient goals met ST) Improve L knee AROM flexion to 80 degrees: MET 2) Improve L knee MMT to 4/5 to improve functional strength : MET 3) Improve by 10 points since IE to demo improved LE functioning: MET at last RA 4) 48-hour pain average of : MET 5) Verbalize IND with HEP: MET 6) Improve PROM L knee extension to lacking 20 degrees: modified at last RA: Not met LT) LLE 5/5 MMT strength: Partially Met 2) L knee flexion 110: Not met 3) L knee extension 10: Not met 4) Ambulate without gait deviations and w/o AD: Not met 5) Negotiate 12 steps without HR to improve community navigation: Not met 6) Improve to score of 30/80: Not met 7) 48 hour pain average of : Not met Plan Plan PT to contact pt's surgeon about pt?s current ROM. Continue POC until pt receives her follow-up consultation about her ROM deficits. Objectively track extension and flexion PROM at each visit . Frequency of Therapy 3x a week Duration of therapy 4 more weeks Time and Billing Re-Eval Time 10 Re-Eval Billing Units 0 Charge for PT reassessment? No PHYSICIAN CERTIFICATION: I certify the specified therapy services for Sol Kent are required, authorized, and reviewed every 30 days.
--- NOTE | 2024-09-13 16:27 | HMH.RHREAS ---
Rehab Reassessment Rehab OP Re-assessment Start: 06/15/24 10:58 Freq: Status: Active Protocol: Document 09/13/24 14:53 DENTON (Rec: 09/13/24 16:19 DENTON [id number]) E-signed By Agustina Cortez, PT Lower Extremity Functional Index Activities Today, do you or would you have any difficulty at all with: a.Any of your usual work, housework or A little bit of difficulty school activities b. Your usual hobbies, recreational or A little bit of difficulty sporting activities c. Getting into or out of the bath A little bit of difficulty d. Walking between rooms A little bit of difficulty e. Putting on your shoes or socks A little bit of difficulty f. Squatting Quite a bit of difficulty g. Lifting an object, like a bag of A little bit of difficulty groceries from the floor h. Performing light activities around A little bit of difficulty your home i. Performing heavy activities around Moderate difficulty your home j. Getting into or out of a car A little bit of difficulty k. Walking 2 blocks A little bit of difficulty l. Walking a mile Moderate difficulty m. Going up or down 10 stairs (about 1 A little bit of difficulty flight of stairs) n. Standing for 1 hour Moderate difficulty o. Sitting for 1 hour A little bit of difficulty p. Running on even ground Quite a bit of difficulty q. Running on uneven ground Quite a bit of difficulty r. Making sharp turns while running fast Quite a bit of difficulty s. Hopping Quite a bit of difficulty t. Rolling over in bed A little bit of difficulty LEFI Score Lower Extremity Functional Index Score 47 Rehab Re-assessment Subjective Subjective Pain: 7/10 average over past 48 hours HEP: Reports good compliance with HEP tasks. Dynasplint: Splint was a rental and was taken back. Pt reports she feels 70% better since CARMEN. Pt reports that most daily tasks have gotten easier. Pt reports she has been doing well since her CARMEN and thinks it helped her ROM. Objective Objective Notes L knee PROM: - Extension: lacking 25 degrees - Flexion: 102 degrees L knee AROM: - Extension: lacking 30 degrees - Flexion: 85 degrees Gait: RW with impaired TKE (L knee contracture). LLE strength: Hip FLEX = 5/5 Hip ABD = 5/5 Hip ADD = 5/5 Knee FLEX = 4+/5 Knee EXT = 4+/5 Swelling: no visible swelling noted Assessment Progress Assessment Slower Than Expected Assessment Notes This is a reassessment for Sol Kent who presents to PT s/p L TKA on 06/13/24. Pt's PT POC has been on hold since 08/19/24 to await a CARMEN. Pt received a CARMEN on 09/07. Per operative reports, surgeon was able to obtain full extension during her CARMEN. Pt is one week s/p manipulation. Pt?s current PROM measures lacking 25 degrees of extension to 102 degrees of flexion. While pt' s flexion improved by ~9 degrees, her extension ROM remains the same. Suspecting non-compliance with HEP. Pt demo'd impaired gait d/t ROM deficits. Pt ambulates with a cane with impaired gait speed and a step to pattern. Pt would benefit from skilled PT 3x weekly to address deficits. PT educated pt on the importance of HEP and PT compliance after a CARMEN to prevent return of arthrofibrosis. Pt reports she can come to PT twice a week. Prognosis to achieve goals fair d/t current ROM and level of progress since initial TKA surgery. Patient goals met LT) LLE 5/5 MMT strength: Partially Met 2) L knee flexion 110: Not met 3) L knee extension 10: Not met 4) Ambulate without gait deviations and w/o AD: Not met 5) Negotiate 12 steps without HR to improve community navigation: Not met 6) Improve to score of 30/80: Not met 7) 48-hour pain average of : Not met Plan Plan Continue POC Frequency of Therapy 3x Duration of therapy 4-5 weeks Time and Billing Re-Eval Time 10 Re-Eval Billing Units 0 Charge for PT reassessment? No PHYSICIAN CERTIFICATION: I certify the specified therapy services for Sol Kent are required, authorized, and reviewed every 30 days.
== END 2024-09-27 23:59 | disposition home or self-care (01) ==
LOC: PT 13:00
PROVIDERS: Visit Provider Orthopaedic Surgery
DX: M25.562 Pain in left knee (principal); Z98.890 Other specified postprocedural states
CPT/HCPCS: 97014; 97016; 97110; 97140; 97163; 97530; 97760; G0283

== ENCOUNTER 2024-12-07 10:38 | Outpatient (CLI) | payer MEDICAID, SELFPAY ==
--- NOTE | 2024-12-07 10:41 | CT_ITS ---
FINAL REPORT TECHNIQUE: Thin section axial CT images with coronal and sagittal reformats were performed. This study was performed with techniques to keep radiation doses as low as reasonably achievable (ALARA). Individualized dose reduction techniques using automated exposure control or adjustment of mA and/or kV according to the patient''s size were employed. CLINICAL HISTORY: PAIN IN LT KNEE COMPARISON: 04/27/2024 FINDINGS: There has been interval placement of left knee prosthesis. Extensive streak artifact is arising from the prosthesis. There is mild genu varum. No fracture or bony erosion is identified. There are small osteophytes along the superior margin of the patella. Hardware defects are seen along the undersurface of the patella. IMPRESSION: Interval placement of left knee prosthesis without evidence of complication. Reviewed, Interpreted and Dictated by Feliz Sanon MD Transcribed by Cici Lopez Authenticated and [facility]
== END 2024-12-07 23:59 | disposition home or self-care (01) ==
LOC: RAD 10:38
PROVIDERS: PCP Nurse Practitioner Family; Visit Provider Orthopaedic Surgery
DX: M25.562 Pain in left knee (principal)
CPT/HCPCS: 73700

== ENCOUNTER 2025-01-07 14:55 | Emergency (ER) | payer MEDICAID, SELFPAY ==
--- NOTE | 2025-01-07 15:07 | ED_ITS ---
Discharge Plan Disposition Patient Disposition: Home, Self-Care Condition: Good Prescriptions Prescriptions: No Action tramadol 50 mg tablet 50 mg PO Q8H PRN (Reason: post op pain) Qty: 45 0RF lisinopril-hydrochlorothiazide 20-12.5 mg tablet See Rx Instructions .ROUTE .COMPLEX Qty: 90 3RF Dose Instruction: Take 1 tablet by mouth once daily Rx Instructions: Take 1 tablet by mouth once daily atorvastatin 10 mg tablet See Rx Instructions .ROUTE .COMPLEX Qty: 90 0RF Dose Instruction: Take 1 tablet by mouth once daily Rx Instructions: Take 1 tablet by mouth once daily Referrals Follow up/Referrals: Abram Purvis APRN [Primary Care Provider] - See instructions Activity Restrictions/Add. Instructions Additional Instructions/Restrictions: Dressing changes needed or ordered per your surgeon If any concerns return Call your surgeon for more in detail dressing change orders Clinical Impressions Clinical Impression: Change of dressing Instructions Patient Instructions: DI for Knee Replacement Print Language Print Language: Indonesian Discharge ED Provider: Robbin Breen Adult HPI <Adama Alex ([facility] REAMING MACHINE OPERATOR - Last Filed: 01/07/25 15:34> General Chief complaint: Recheck/Abnormal Lab/Rx Stated complaint: Surgery 01/02/25 L knee, Bandage change Time Seen by Provider: 01/07/25 14:58 Mode of Arrival: Ambulatory Source of Information: Patient Limitations: No Limitations History of Present Illness HPI narrative: 64-year-old female presents for bandage change to left knee. Patient states she had surgery on [address] Machado at and follows up on the . Patient states she had a vacuum attached to her dressing that quit working, and she removed it. Pt states she called Dr. Machado's office and was told if it quit working and it needed to be changed to go to the hospital to get it changed. Related Data Previous Rx's ?Medication ?Instructions ?Recorded tramadol 50 mg tablet 50 mg PO Q8H PRN post op pain #45 09/27/24 tabs lisinopril 20 See Rx Instructions .Route 11/30/24 mg-hydrochlorothiazide 12.5 mg .COMPLEX #90 tabs tablet atorvastatin 10 mg tablet See Rx Instructions .Route 12/15/24 .COMPLEX #90 tabs Allergies Allergy/AdvReac Type Severity Reaction Status Date / Time No Known Allergies Allergy Verified 11/17/24 10:09 PFS <[facility]OLY - Last Filed: 01/07/25 15:34> PFS Disclaimer: The information contained in this section may have been updated after the patient was seen, as this information can be updated by other users. 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) HTN (hypertension), benign Hyperlipidemia Surgical History , REAMING MACHINE OPERATOR) H/O arthroscopy of left knee Family History , REAMING MACHINE OPERATOR) Diabetes Heart attack Cancer Social History , REAMING MACHINE OPERATOR) Smoking Status: Never smoker alcohol intake: never substance use type: denies use current occupational status: retired Travel in the last 8 weeks: None Have you lived/traveled outside US in past 30 days?: No Contact w/someone who lives/traveled outside US past 30 days?: No Exposure to someone with infectious disease in past 14 days?: No Do you have a fever (greater than 100.4 F or 38 C)?: No Have you tested positive for COVID-19: No Exposed to someone with COVID-19 in past 14 days?: No Do you have a sore throat?: No Do you have a cough?: No Do you have any weakness?: No Do you have any diarrhea?: No Are you experiencing any unusual bleeding?: No Do you have any muscle aches/pain?: No Do you have any abdominal pain?: No Are you experiencing loss of taste or smell?: No Other 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 Have you received the Flu Vaccine for this season: No Have you received the Pneumonia Vaccine: No <Adama [facility] - Last Filed: 01/07/25 15:34> ROS Obtained: Yes Systems reviewed as appropriate & no additional complaints except as documented Musculoskeletal Musculoskeletal: Reports system reviewed and no additional complaints, except as documented, Reports as per HPI and Reports other (Bloodsoaked dressing) Physical Exam <Adama [facility] REAMING MACHINE OPERATOR - Last Filed: 01/07/25 15:34> General General appearance: alert and in no apparent distress Eye Eye exam: Present normal appearance ENT ENT exam: Present normal exam Respiratory Respiratory exam: Present normal lung sounds bilaterally Cardiovascular Cardiovascular exam: Present regular rate and normal rhythm Expanded Lower Extremity Exam Left: Leg image: 2 1. sanguineous drainage to dressing Neurological Exam Neurological exam: Present alert and oriented X3 Skin Skin exam: Present other Medical Decision Making <Adama Garciarj ([facility]), REAMING MACHINE OPERATOR - Last Filed: 01/07/25 15:34> Medical Records Medical records reviewed: Yes I reviewed the patient's medical records. Screening: Per USPSTF and CDC recommendations, given the prevalence of disease in our region, it is our hospital?s policy to screen for HIV and viral Hepatitis for all patients aged 18 and over and those with ongoing risk factors. Yemi Inquiry Pt receiving controlled substance: No Yemi was queried for this patient: No Vital Signs: 01/07/25 15:12 01/07/25 16:17 Temperature 98.5 F 98.1 F Temperature Source Oral Pulse Rate 82 Pulse Rate [Right] 82 Respiratory Rate 18 13 Blood Pressure 145/58 H Blood Pressure [Right Arm] 127/72 Blood Pressure Mean [Right Arm] 90 02 Sat by Pulse Oximetry 99 Oxygen Delivery Method Room Air Room Air Medical Decision Narrative: In summary patient is a 64-year-old female who presents to the emergency department for evaluation of postop dressing change. Patient is hemodynamically stable upon arrival, afebrile. Dressing with sanguineous drainage. Differential diagnosis includes postop. Initial inventions include dressing change. Upon repeat evaluation dressing changed. Given this patient appropriate for discharge at this time call Dr. Machado's office for any concerns and follow-up <Robbin Breen MD - Last Filed: 01/08/25 19:26> Vital Signs: 01/07/25 15:12 01/07/25 16:17 Temperature 98.5 F 98.1 F Temperature Source Oral Pulse Rate 82 Pulse Rate [Right] 82 Respiratory Rate 18 13 Blood Pressure 145/58 H Blood Pressure [Right Arm] 127/72 Blood Pressure Mean [Right Arm] 90 02 Sat by Pulse Oximetry 99 Oxygen Delivery Method Room Air Room Air Medical Decision Narrative: In summary patient is a 64-year-old female who presents to the emergency department for evaluation of postop dressing change. Patient is hemodynamically stable upon arrival, afebrile. Dressing with sanguineous drainage. Differential diagnosis includes postop. Initial inventions include dressing change. Upon repeat evaluation dressing changed. Given this patient appropriate for discharge at this time call Dr. Machado's office for any concerns and follow-up I was consulted by the EVANGELIST, and we discussed the complexity of the problems being addressed.I approved the treatment and management plan for this patient?s care in the Emergency Department, thus performing a substantive portion of the medical decision making.Signed, Robbin Breen MD MBA Critical Care <Adama Alex ([facility]), REAMING MACHINE OPERATOR - Last Filed: 01/07/25 15:34> Critical Care Time Critical Care Time: No
--- OUTSIDE RECORDS SUMMARY | 2025-01-07 15:11 | XMS_ITS ---
Author Organization [facility] , [facility] Address [address] [place] [address] Phone Care Team Providers Care Assistant Warehouse Manager Name Role Phone Abram Purvis APRN Unavailable [phone] Jeannette FLOWER, Nickolas Unavailable [phone] Plan of Treatment Future Appointments Date Time Location Provi braden Post Op 01/23/2025 11:00AM [facility] Poonam Cunningham PA-C Last Documented On 9:42AM ; [facility], [facility] Assessments Includes: Assessments for all patient encounters No Assessments Recorded Medical Equipment - Implanted Devices Includes: Current and historical Devices No Medical Equipment Recorded Medications Includes: Current and historical Medications Current Medications (continue as prescribed) Acetaminophen 500 MG Oral Tablet 01/02/2025 - 02/02/20 Provider: Nickolas Machado MD Diagnosis: Take 2 tablets by mouth every 8 hours Last Documented On 5 8:24AM By Nickolas Machado ; [facility], [facility] Cefadroxil 500 MG Oral Capsule 01/02/2025 - 01/16/2025 Provider: Nickolas Machado MD Diagnosis: one po twice a day for 14 days Last Documented On 5 8:24AM By Nickolas Medley [facility], [facility] Colace 100 MG Oral Capsule 01/02/2025 - 02/01/2025 Pro vider: Nickolas Machado MD Diagnosis: 1-2 tabs daily Last Documented On 5 8:24AM By Nickolas Machado ; [facility], [facility] Eliquis 2.5 MG Oral Tablet 01/02/2025 - 02/13/2025 Pro vider: Nickolas Machado MD Diagnosis: twice a day Last Documented On 5 8:24AM By Nickolas Machado ; [facility], [facility] Meloxicam 15 MG Oral Tablet 01/02/2025 - 01/16/2025 Pr ovider: Nickolas Machado MD Diagnosis: once a day TAKE ONE P/O ONE TIME A DAY UNTIL FIN ISHED Last Documented On 5 8:24AM By Nickolas Machado ; [facility], [facility] Ondansetron HCl 4 MG Oral Tablet 01/02/2025 - 01/10/20 Provider: Nickolas Machado MD Diagnosis: 1-2 po q 4-6h PRN Nausea Last Documented On 5 8:24AM By Nickolas Machado ; [facility], [facility] Lisinopril-hydroCHLOROthiazi de 20-12.5 MG Oral Tablet 11/30/2024 - 02/28/2025 Provider: Abram Purvis APRN Diagnosis: Last Documented On 5 9:05AM By Tiffani Marin ; [facility], [facility] Past Medications on file Tranexamic Acid 650 MG Oral Tablet 01/02/2025 - 2024 Provider: Nickolas Machado MD Diagnosis: as directed TAKE 3 TABLETS O NE TIME A DAY BEGINNING THE EVENING OF SURGERY FOR FOUR DAYS Last Documented On 5 8:24AM By Nickolas Machado ; [facility], [facility] oxyCODONE HCl 5 MG Oral Tablet 01/02/2025 - 01/07/2025 Provider: Nickolas Machado MD Diagnosis: [id number] ONE TABLET PO Q 4-6H FOR POST OP PAIN Last Documented On 5 8:24AM By Nickolas Machado ; [facility], [facility] traMADol HCl 50 MG Oral Tablet 11/28/2024 - 11/29/2024 Provider: Diagnosis: Last Documented On 5 9:05AM By Tiffani Marin ; [facility], [facility] Atorvastatin Calcium 10 MG O ral Tablet 09/19/2024 - 12/18/2024 Provider: Abram OBRIEN RN Diagnosis: Last Documented On 5 9:06AM By Tiffani Marin ; [facility], [facility] Medications Administered Includes: Administered Medications in patient's chart No Administered Medications Recorded Vital Signs Includes: Vital Signs from 2024 through 01/07/2025 Vital Name 12/01/2024 09:06A Height (in) 63 Weight (lb) 130 Body Mass Index 23 Body Surface Area 1.6 Note: wi Last Documented: On 12/01/2024 9:06AM ; [facility], [facility] Results Includes: Results from 2024 through 01/07/2025 No Results Recorded For Specified Dates History of Present Illness History of Present Illness not supported for this document type No History of Present Illness Recorded Social History Description Last Updated No caffeine use 12/01/2024 Last Documented On 10:27AM ; [facility] No recent change in diet 12/01/2024 Last Documented On 10:27AM ; [facility] Not a current smoker. 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, init Nickolas Machado MD [facility] - OP 01/02/2025 Last Documented On 5 11:21AM ; [facility] DRAIN/INJECT, JOINT/BURSA (LEFT) 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, init, Presence of left artificial knee joint Nickolas Machado MD [facility] 12/01/2024 Last Documented On 12:20PM ; [facility] Surgical History Last Updated History of total knee arthroplasty 12/01 Last Documented On 10:27AM ; [facility], [facility] 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 Includes: 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 in patient's chart Description Last Updated History of arthritis 12/01/2024 Last Documented On 5 10:27AM ; [facility] History of Hypertension 12/01/2024 Last Documented On 5 10:27AM ; [facility] Family History Includes: Family History in patient's chart Description Last Updated Family history of rheumatoid arthritis 0 12/01/2024 Last Documented On 5 10:27AM ; [facility] Family history of cancer 12/01/2024 Last Documented On 5 10:27AM ; [facility] Review of Systems Review of Systems not supported for this document type No Review of Systems Recorded Mental Status No Mental Status Recorded Functional Status No Functional Status Recorded Physical Exam Physical Exam not supported for this document type No Physical Exam Recorded Allergies Includes: Active, inactive, and resolved Allergies No Known Allergies Encounters Includes: Encounters from 2024 through 01/07/2025 Encounter Provider Location Date Check-In Time Check-Out Time Diagnosis [facility] Nickolas Machado MD Surgery 01/03/2012/01/2024 11:19AM 12/01/2024 11:59PM SECOND OPINION Nickolas Machado MD [facility] 12/02/19 8:35AM 9:45AM Insurance Includes: Active Insurance Policies Plan Name Member ID Group # Subscriber Relationship Effect gunjan Dates 1 - [employer] [id number] Sol Kent Self Clinical Notes Includes: Signed Clinical Notes starting from 09/11/2022 * Progress note Date Encounter Last Documented by 12/01/2024 SECOND OPINION Last documented on 12/01/2024; 10:27 AM, Nickolas Machado MD; [facility] Chief Complaint The Chief Complaint is: Knee pain. Referred Here Referred by. History of Present Illness Sol Kent is a 64 year old female. - Allergy list reviewed - Problem list reviewed - Medication list reviewed - Sharp pain Symptoms - Pain is constant (100% of the time) - Pain is throbbing - Pain is dull, aching - Patient pain level from 1-10: 10 - Yes, previous treatment. - - Review of medications documented Presents for a 2nd opinion regarding a painful and stiff left total knee arthroplasty. Total knee arthroplasty done about 6 months ago. She developed postoperative stiffness and underwent a manipulation under anesthesia. This has with Dr. Calvin Collier. It sounds like she has developed recurrent stiffness after the manipulation. No history of infections. She has been unable to return to work secondary to a very stiff and painful left total knee arthroplasty. She has tried extensive physical therapy as well as bracing. She now walks with a severely antalgic gait with a walker. Current Medication - Atorvastatin Calcium 10 MG Oral Tablet take as directed 90 days, 0 refills - Lisinopril-hydroCHLOROthiazide 20-12.5 MG Oral Tablet take as directed 90 days, 0 refills Past Medical/Surgical History Diagnoses: Hypertension. Arthritis Surgical: - Total knee arthroplasty Social History Not a current smoker. Current diet: No recent change in diet. Caffeine use: No caffeine use. Alcohol: Not using alcohol. Drug Use: Not using drugs. Habits: Not exercising regularly. Allergies - No Known Allergies Family History Cancer Rheumatoid arthritis Review Of Systems Systemic: Not feeling tired, no recent weight loss, and no recent weight gain. Head: No headache and no sinus pain. Eyes: No vision problems, no Cataracts, no Glasses/Contacts, and no Glaucoma. Otolaryngeal: No hearing loss and no tinnitus. Cardiovascular: No chest pain or discomfort, no palpitations, and no Hypertension. High Cholesterol. Pulmonary: No daytime asthma symptoms and no chronic cough. No wheezing. Gastrointestinal: No heartburn and no abdominal pain. No Indigestion, no Peptic Ulcer, no GI Stomach Bleed, no Ulcers, and no Acid Reflux. Endocrine: No hot flashes. Muscle weakness. No Diabetes, no Hypothyroid, and no Hyperthyroid. Hematologic: No easy bleeding, no tendency for easy bruising, and no Anemia. Musculoskeletal: Arthritis and lower back pain. No soft tissue swelling. Pain localized to one or more joints. Neurological: No dizziness and no convulsions. Numbness. Psychological: No anxiety, no emotional lability, no depression, and no insomnia. Not crying for no reason. Skin: No dry skin. No Ulcers, no Scars, and no rash. Allergic and Immunologic: No complaint of seasonal allergic reaction. Physical Findings - Vitals taken 12/01/2024 09:06 am sc Height 63 in Weight 130 lbs Body Mass Index 23 kg/m2 Body Surface Area 1.6 m2 General: The patient is alert and oriented in no distress. Respiratory: Nonlabored breathing in the exam room Cardiac: Extremities are warm and well-perfused. Skin: Skin appears clean dry and intact. Musculoskeletal exam: Patient walks with an antalgic gait. Exam of the BILATERAL HIPS shows no pain with internal or external rotation. No pain with hip flexion and adduction. Exam of the LEFT knee shows skin is clean, dry, and intact. Well-healed anterior incision. Her range motion is 45-95 degrees. Patella seems to be tracking well. No pain with hip range motion. Knee feels balanced in flexion. Unable to assess extension given the severe flexion contracture. Exam of the RIGHT knee shows skin is clean, dry, and intact. Nontender to palpation over the medial and lateral joint lines. The range of motion is 0 to 125 degrees. The knee is stable to varus and valgus stress in extension. Negative anterior and posterior drawer. No pain with patellar grind. Neurovascular exam of the bilateral lower extremities demonstrates strength to be 5 out of 5 ankle dorsiflexion/plantarflexion, and great toe dorsiflexion/plantarflexion. Pulses arePalpable in dorsalis pedis bilaterally. I reviewed her outside hospital images that she brought in. She did have severe [id number] arthritis prior to surgery. She now has a cemented well-fixed total knee arthroplasty in seemingly good position. Previous Tests Musculoskeletal: History of EKG and History of Blood Tests. Imaging: X-Ray: X-ray. CT Scan: CT scan. Counseling/Education - Tobacco non-user - Use of tobacco assessment performed Notes This dictation was done with voice recognition software and may contain errors and omissions. 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 Has done extensive physical therapy and not approved. Therefore we discussed a revision total knee arthroplasty. I will order a CT scan prior to evaluate rotation of the components. We discussed we would do a full scar tissue release see if there is any room to go down on the liner. However if the knee is not balanced where if we can not achieve full extension which is unlikely given her severe flexion contracture then we would need to do a revision knee arthroplasty possibly even a hinge component given the extent of the flexion contracture. Aspiration note We discussed the indications, risks, benefits, alternatives, and recovery in detail to a left knee aspiration. Risks discussed include but are not limited to bleeding, infection (possibly requiring surgery to treat), pain, allergic reaction and failure to obtain fluid and/or diagnosis. The patient gave verbal and written consent, and wished to proceed. Procedure: The the skin around the superior-lateral aspect of the patella was prepped with Betadine. The skin was infiltrated with 2cc of 1% lidocaine. The infiltration went from skin to subcutaneous tissues down to capsule at this site. After reprepping with Betadine, we passed an 18-gauge needle into the suprapatellar pouch. The fluid was then aspirated and sent for culture and cell count. The needle was removed, the skin was cleansed with alcohol and a Band-Aid was applied. The patient tolerated to procedure well.
--- OUTSIDE RECORDS SUMMARY | 2025-01-07 15:11 | XMS_ITS ---
Care Plan - [facility], [facility] Created on: January 07, 2025 Sol Kent : 1960 Sex: Female Author Organization [facility] , [facility] Address [address] [place] [address] Phone Care Team Providers Care Scow Derrick Operator Name Role Phone Abram Purvis APRN Unavailable [phone] Jeannette FLOWER, Nickolas Unavailable [phone]
--- OUTSIDE RECORDS SUMMARY | 2025-01-07 15:11 | XMS_ITS | Clinical Summary ---
Author Organization [facility] , [facility] Address [address] [place] [address] Phone Care Team Providers Care Senior Stock Plan Administrator Name Role Phone Abram Purvis APRN Unavailable [phone] Jeannette FLOWER, Nickolas Unavailable [phone] Reason for Visit and Chief Complaint The Chief Complaint is: knee pain Plan of Treatment Future Appointments Date Time Location Provi braden Post Op 01/23/2025 11:00AM [facility] Poonam Cunningham PA-C Last Documented On 9:42AM ; [facility], [facility] Assessments Includes: Assessments from this encounter Findings Left total knee arthroplasty arthrofibrosis - Last Documented On 12/01/2024 10:27AM ; [facility], [facility] Today we discussed she was severe arthrofibrosis [...] given the extent of the flexion contracture. - Last Documented On 12/01/2024 10:27AM ; [facility], [facility] Aspiration note - Last Documented On 12/01/2024 10:27AM ; [facility], [facility] We discussed the indications, risks, benefits, alternatives, and recovery in detail to a left knee aspiration. Risks discussed include but are not limited to bleeding, infection (possibly requiring surgery to treat), pain, allergic reaction and failure to obtain fluid and/or diagnosis. The patient gave verbal and written consent, and wished to proceed. - Last Documented On 12/01/2024 10:27AM ; [facility] Procedure: The the skin around the superior-lateral [...] with alcohol and a Band-Aid was applied. - Last Documented On 12/01/2024 10:27AM ; [facility], [facility] The patient tolerated to procedure well. - Last Documented On 12/01/2024 10:27AM ; [facility], [facility] Medical Equipment - Implanted Devices Includes: Current Devices No Medical Equipment Recorded Medications Includes: Medications discussed during this encounter and other current Medications Current Medications (continue as prescribed) Acetaminophen 500 MG Oral Tablet 01/02/2025 - 02/02/20 Provider: Nickolas Machado MD Diagnosis: Take 2 tablets by mouth every 8 hours Last Documented On 8:24AM By Nickolas Medley [facility] Cefadroxil 500 MG Oral Capsule 01/02/2025 - 01/16/2025 Provider: Nickolas Machado MD Diagnosis: one po twice a day for 14 days Last Documented On 8:24AM By Nickolas Medley [facility] Colace 100 MG Oral Capsule 01/02/2025 - 02/01/2025 Pro vider: Nickolas Machado MD Diagnosis: 1-2 tabs daily Last Documented On 8:24AM By Nickolas Medley [facility] Eliquis 2.5 MG Oral Tablet 01/02/2025 - 02/13/2025 Pro vider: Nickolas Machado MD Diagnosis: twice a day Last Documented On 8:24AM By Nickolas Medley [facility], [facility] Meloxicam 15 MG Oral Tablet 01/02/2025 - 01/16/2025 Pr ovider: Nickolas Machado MD Diagnosis: once a day TAKE ONE P/O ONE TIME A DAY UNTIL FIN ISHED Last Documented On 5 8:24AM By Nickolas Machado ; [facility], [facility] Ondansetron HCl 4 MG Oral Tablet 01/02/2025 - 01/10/20 Provider: Nickolas Machado MD Diagnosis: 1-2 po q 4-6h PRN Nausea Last Documented On 8:24AM By Nickolas Machado ; [facility], [facility] Lisinopril-hydroCHLOROthiazi de 20-12.5 MG Oral Tablet 11/30/2024 - 02/28/2025 Provider: Abram Purvis APRN Diagnosis: Last Documented On 9:05AM By Tiffani Marin ; [facility], [facility] Past Medications on file Tranexamic Acid 650 MG Oral Tablet 01/02/2025 - 2024 Provider: Nickolas Machado MD Diagnosis: as directed TAKE 3 TABLETS O NE TIME A DAY BEGINNING THE EVENING OF SURGERY FOR FOUR DAYS Last Documented On 8:24AM By Nickolas Machado ; [facility], [facility] oxyCODONE HCl 5 MG Oral Tablet 01/02/2025 - 01/07/2025 Provider: Nickolas Machado MD Diagnosis: 0ymd4-5r ONE TABLET PO Q 4-6H FOR POST OP PAIN Last Documented On 5 8:24AM By Nickolas Machado ; [facility], [facility] traMADol HCl 50 MG Oral Tablet 11/28/2024 - 11/29/2024 Provider: Diagnosis: Last Documented On 9:05AM By Tiffani Marin ; [facility], [facility] Atorvastatin Calcium 10 MG O ral Tablet 09/19/2024 - 12/18/2024 Provider: Abram OBRIEN RN Diagnosis: Last Documented On 9:06AM By Tiffani Marin ; [facility], [facility] Medications Administered Includes: Administered Medications from this encounter No Administered Medications Recorded Vital Signs Includes: Vital Signs from this encounter Vital Name 12/01/2024 09:06A Height (in) 63 Weight (lb) 130 Body Mass Index 23 Body Surface Area 1.6 Note: sc Last Documented: On 12/01/2024 9:06AM ; [facility] Results Includes: Results discussed during this encounter No Results Recorded For Specified Dates History of Present Illness Includes: History of Present Illness from this encounter HPI Sol Kent is a 64 year old [...] a severely antalgic gait with a walker. Social History Description Last Updated No caffeine use 12/01/2024 Last Documented On 5 10:27AM ; [facility] No recent change in diet 12/01/2024 Last Documented On 5 10:27AM ; [facility] Not a current smoker. 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, init, Presence of left artificial knee joint Nickolas Machado MD [facility] 12/01/2024 Last Documented On 5 12:20PM ; [facility] X-ray [id number] Last Documented On 5 9:07AM ; [facility] [place] scan [id number] Last Documented On 5 9:07AM ; [facility] History of EKG Last Documented On 5 9:07AM ; [facility] History of Blood Tests Last Documented On 5 9:07AM ; [facility] Surgical History Last Updated History of total knee arthroplasty 12/01 Last Documented On 5 10:27AM ; [facility] 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 Includes: 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 addressed during this encounter Description Last Updated History of arthritis 12/01/2024 Last Documented On 10:27AM ; [facility] History of Hypertension 12/01/2024 Last Documented On 5 10:27AM ; [facility] Family History Includes: Family History addressed during this encounter Description Last Updated Family history of rheumatoid arthritis 0 12/01/2024 Last Documented On 5 10:27AM ; [facility] Family history of cancer 12/01/2024 Last Documented On 10:27AM ; [facility] Review of Systems Includes: Review of Systems from this encounter Systemic: Not feeling tired, no recent weight [...] Immunologic: No complaint of seasonal allergic reaction. Mental Status Includes: Mental Status from this encounter Description No anxiety Functional Status Includes: Functional Status from this encounter No Functional Status Recorded Physical Exam Includes: Physical Exam from this encounter Allergies Includes: Active Allergies No Known Allergies Encounters Encounter Provider Location Date Check-In Time Check-Out Time Diagnosis SECOND OPINION Nickolas Machado MD [facility] 12/02/19 25 8:35AM 9:45AM Insurance Includes: Active Insurance Policies Plan Name Member ID Group # Subscriber Relationship Effect gunjan Dates 1 - [employer] MED[employer] [id number] Sol Kent Self Clinical Notes Includes: Clinical Notes from this encounter * Progress note Date Encounter Last Documented by 12/01/2024 SECOND OPINION Last documented on 12/01/2024; 10:27 AM, Nickolas Machado MD; [facility], [facility] Chief Complaint The Chief Complaint is: Knee [...] she brought in. She did have severe book-[id number]-[id number] arthritis prior to surgery. She now has [...]
[2025-01-07 15:12] VITALS: BP 127/72; PULSE 82; RESP 18; TEMP 36.9; O2SAT 99; BMI 24.4
--- OUTSIDE RECORDS SUMMARY | 2025-01-07 15:12 | XMS_ITS | Clinical Summary ---
Author Organization [facility] , [facility] Address [address] [place] [address] Phone Care Team Providers Care Psychologist Personnel Name Role Phone Abram Purvis APRN Unavailable [phone] Jeannette FLOWER, Nickolas Unavailable [phone] Reason for Visit and Chief Complaint [facility] Plan of Treatment Future Appointments Date Time Location Provi braden Post Op 01/23/2025 11:00AM [facility] Poonam Cunningham PA-C Last Documented On 9:42AM ; [facility], [facility] Assessments Includes: Assessments from this encounter No Assessments Recorded Medical Equipment - Implanted Devices Includes: Current Devices No Medical Equipment Recorded Medications Includes: Medications discussed during this encounter and other current Medications Current Medications (continue as prescribed) Acetaminophen 500 MG Oral Tablet 01/02/2025 - 02/02/20 Provider: Nickolas Machado MD Diagnosis: Take 2 tablets by mouth every 8 hours Last Documented On 8:24AM By Nickolas Machado ; [facility], [facility] Cefadroxil 500 MG Oral Capsule 01/02/2025 - 01/16/2025 Provider: Nickolas Machado MD Diagnosis: one po twice a day for 14 days Last Documented On 8:24AM By Nickolas Machado ; [facility], [facility] Colace 100 MG Oral Capsule 01/02/2025 - 02/01/2025 Pro vider: Nickolas Machado MD Diagnosis: 1-2 tabs daily Last Documented On 8:24AM By Nickolas Machado ; [facility], [facility] Eliquis 2.5 MG Oral Tablet 01/02/2025 - 02/13/2025 Pro vider: Nickolas Machado MD Diagnosis: twice a day Last Documented On 5 8:24AM By Nickolas Machado ; [facility], [facility] Meloxicam 15 MG Oral Tablet 01/02/2025 - 01/16/2025 Pr ovider: Nickolas Machado MD Diagnosis: once a day TAKE ONE P/O ONE TIME A DAY UNTIL FIN ISHED Last Documented On 5 8:24AM By Nickolas Machado ; [facility], [facility] Ondansetron HCl 4 MG Oral Tablet 01/02/2025 - 01/10/20 Provider: Nickolas Machado MD Diagnosis: 1-2 po q 4-6h PRN Nausea Last Documented On 5 8:24AM By Nickolas Machado ; [facility], [facility] Lisinopril-hydroCHLOROthiazi de 20-12.5 MG Oral Tablet 11/30/2024 - 02/28/2025 Provider: Abram Purvis APRN Diagnosis: Last Documented On 5 9:05AM By Tiffani Marin ; [facility], [facility] Medications Administered Includes: Administered Medications from this encounter No Administered Medications Recorded Results Includes: Results discussed during this encounter No Results Recorded For Specified Dates History of Present Illness Includes: History of Present Illness from this encounter No History of Present Illness Recorded Social History No Social History Recorded - Smoking Status Unknown Procedures and Surgical History Includes: Procedures from this encounter Procedures Code Diagnosis Performing Provider Service Location Service Date REVISE/REPLACE KNEE JOINT (LEFT) [address] 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, init Nickolas Machado MD [facility] - 01/02/2025 Last Documented On 5 11:21AM ; [facility] 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 Includes: 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 addressed during this encounter No 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 Recorded Family History Includes: Family History addressed during this encounter No Family History Recorded Review of Systems Includes: Review of Systems from this encounter No Review of Systems Recorded Mental Status Includes: Mental Status from this encounter No Mental Status Recorded Functional Status Includes: Functional Status from this encounter No Functional Status Recorded Physical Exam Includes: Physical Exam from this encounter No Physical Exam Recorded Allergies Includes: Active Allergies No Known Allergies Encounters Encounter Provider Location Date Check-In Time Check-Out Time Diagnosis [facility] Nickolas Machado MD Surgery 01/02/2025 11:19AM 11:59PM Insurance Includes: Active Insurance Policies Plan Name Member ID Group # Subscriber Relationship Effect gunjan Dates 1 - [employer] MED[employer] [id number] Sol Kent Self Clinical Notes Includes: Clinical Notes from this encounter No Clinical Notes Recorded
[2025-01-07 16:17] VITALS: BP 145/58; PULSE 82; RESP 13; TEMP 36.7; O2SAT 98
== END 2025-01-07 16:19 | disposition home or self-care (01) ==
PROVIDERS: Emergency Provider Emergency Medicine; PCP Nurse Practitioner Family
DX: M17.12 Unilateral primary osteoarthritis, left knee (principal); Z96.652 Presence of left artificial knee joint; Z48.00 Encounter for change or removal of nonsurgical wound dressing
CPT/HCPCS: 99281

== ENCOUNTER 2025-01-24 16:00 | Outpatient (RCR) | payer MEDICAID, SELFPAY | END 2025-01-24 23:59 | disposition home or self-care (01) | LOC: PT 16:00 | PROVIDERS: PCP Nurse Practitioner Family; Visit Provider Orthopaedic Surgery | DX: Z96.652 Presence of left artificial knee joint (principal) | CPT/HCPCS: 97110; 97140; 97163 ==

== ENCOUNTER 2025-02-02 12:06 | Emergency (ER) | payer MEDICAID, SELFPAY ==
--- NOTE | 2025-02-02 12:39 | XR_ITS ---
FINAL REPORT CLINICAL HISTORY: post op edema, warmth, tenderness, ROM COMPARISON: 09/15/2024 FINDINGS: AP, lateral and oblique views of the left knee were obtained. There are postoperative changes from revised knee arthroplasty. The hardware appears intact. There is soft tissue edema and small joint effusion. IMPRESSION: Soft tissue edema and small joint effusion which could be postoperative but infectious process is not excluded. Reviewed, Interpreted and Dictated by Nida Zhang MD Transcribed by Cici Lopez Authenticated and [facility]
[2025-02-02 12:44] VITALS: BP 134/59; PULSE 80; RESP 17; TEMP 36.7; O2SAT 100; BMI 23.0
[2025-02-02] MEDS: OXYCODONE 10MG W/APAP 325MG TABLET 1 EACH PO (12:59)
[2025-02-02 13:18] LABS: Basophils % 0.3 % (0.1-2.0); Eosinophils # 0.1 Kmm3 (0.0-0.4); Eosinophils % 1.2 % (0.1-12.0); Hematocrit 35.9 % (37.0-47.0); Immature Granulocytes # 0.01 10^3uL; Immature Granulocytes % 0.2 %; Lymphocytes % 16.9 % (10-50); Mean Corpuscular HGB Conc 33.4 g/dL (31.8-35.4); Mean Corpuscular Hemoglobin 31.2 pg (27.0-31.2); Mean Corpuscular Volume 93.2 fl (81-99); Mean Platelet Volume 9.7 fl (7.4-10.4); Monocytes # 0.7 K/mm3 (0.1-1.0); Monocytes % 12.4 % (1.7-9.3); Neutrophils # 4.1 K/mm3 (1.8-7.8); Nucleated Red Blood Cells # 0 10^3/uL; Nucleated Red Blood Cells % 0 %; Platelet Count 232 K/mm3 (142-424); Red Blood Count 3.85 M/mm3 (4.20-5.40); Red Cell Distribution Width 13.4 % (11.5-17.5); Red Cell Distribution Width-SD 45.7 fL
--- NOTE | 2025-02-02 13:21 | PC.NURSE ---
Called [facility] for Dr. loera i talked to the positive printer operator and she left a message for Dr. elliott, she sent mje to his MA. left a message with her.
[2025-02-02 13:31] LABS: Anion Gap 11.2 mEq/L (5-15); Blood Urea Nitrogen 15 mg/dl (7-17); Calcium 10.9 mg/dl (8.4-10.2); Carbon Dioxide 26 mmol/L (22.0-30.0); Chloride 103 mmol/L (98-107); Creatinine Clearance Estimated 53 mL/min (50-200); Estimated Glomerular Filt Rate 72 ml/min (>60); GFR (African American) 87 ML/MIN (>60); Glucose 93 mg/dl (74-100); Potassium 4.2 mmoL/L (3.5-5.1); Sodium 136 mmol/L (136-145)
--- NOTE | 2025-02-02 13:50 | PC.NURSE ---
Dr. Trent's office called and states that the doctor will call back shortly.
--- NOTE | 2025-02-02 13:53 | ED_ITS ---
<Statement entered by Evon Hogan DO - 02/02/25 16:17> I was consulted by the EVANGELIST, and we discussed the complexity of the problems being addressed. I approved the treatment and management plan for this patient's care in the emergency department, thus performing a substantive portion of the medical decision making. Evon Hogan DO Discharge Plan Disposition Patient Disposition: Home, Self-Care Prescriptions Prescriptions: No Action tramadol 50 mg tablet 50 mg PO Q8H PRN (Reason: post op pain) Qty: 45 0RF lisinopril-hydrochlorothiazide 20-12.5 mg tablet See Rx Instructions .ROUTE .COMPLEX Qty: 90 3RF Dose Instruction: Take 1 tablet by mouth once daily Rx Instructions: Take 1 tablet by mouth once daily atorvastatin 10 mg tablet See Rx Instructions .ROUTE .COMPLEX Qty: 90 0RF Dose Instruction: Take 1 tablet by mouth once daily Rx Instructions: Take 1 tablet by mouth once daily Referrals Follow up/Referrals: Abram Purvis APRN [Primary Care Provider] - See instructions Activity Restrictions/Add. Instructions Additional Instructions/Restrictions: Today you were evaluated in the emergency department for your left knee. Please follow-up with Dr. Machado's office tomorrow. Return to the ED for any worsening of condition. You may take oxyz-[id number] Tylenol or ibuprofen for pain. Clinical Impressions Clinical Impression: Left knee pain Instructions Patient Instructions: DI for Acute Pain -- Adult Print Language Print Language: Danish Discharge ED Provider: Evon Hogan General Adult HPI General Chief complaint: PAIN Stated complaint: Trouble walking L leg pain/swelling Time Seen by Provider: 02/02/25 12:14 Mode of Arrival: Wheelchair Source of Information: Patient and Spouse Description of Symptoms (Recalled from ER Triage Doc. by RN): pt to the ED with pain, warmth and decrease in ROM since yesterday. pt reports she had a knee replacement by Dr. Collier in may and then a revision surgery a month ago by Dr. Clayton in [place]. pt reports she has been going to PT and improving well until yesterday. pt denies fever or chills History of Present Illness HPI narrative: Patient is a 65-year-old female PMHx hyperlipidemia, hypertensive heart disease, osteoarthritis who presents to the ED for complaints of 1 day of left knee tenderness, warmth, decreased ROM, pain. Patient states that in May 2024 she had a left knee replacement here at [facility], subsequently had another left knee replacement 1 month ago at [facility] by Dr. Machado. She reports that she has been in physical therapy, has not had any issues since her second surgery. Related Data Previous Rx's ?Medication ?Instructions ?Recorded tramadol 50 mg tablet 50 mg PO Q8H PRN post op pain #45 09/27/24 tabs lisinopril 20 See Rx Instructions .Route 11/30/24 mg-hydrochlorothiazide 12.5 mg .COMPLEX #90 tabs tablet atorvastatin 10 mg tablet See Rx Instructions .Route 12/15/24 .COMPLEX #90 tabs Allergies Allergy/AdvReac Type Severity Reaction Status Date / Time No Known Allergies Allergy Verified 11/17/24 10:09 [facility] Disclaimer: The information contained in this section may have been updated after the patient was seen, as this information can be updated by other users. 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) H/O arthroscopy of left knee Family History , HOBBIES AND CRAFTS SALES REPRESENTATIVE) Diabetes Heart attack Cancer Social History , HOBBIES [employer] CRAFTS SALES REPRESENTATIVE) Smoking Status: Unknown if ever smoked alcohol intake: never substance use type: denies use current occupational status: retired Travel in the last 8 weeks?: None Have you lived/traveled outside US in past 30 days?: No Contact w/someone who lives/traveled outside US past 30 days?: No Exposure to someone with infectious disease in past 14 days?: No Do you have a fever (greater than 100.4 F or 38 C)?: No Have you tested positive for COVID-19?: No Exposed to someone with COVID-19 in past 14 days?: No Do you have a sore throat?: No Do you have a cough?: No Do you have any weakness?: No Do you have any diarrhea?: No Are you experiencing any unusual bleeding?: No Do you have any muscle aches/pain?: No Do you have any abdominal pain?: No Are you experiencing loss of taste or smell?: No Other 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 Have you received the Flu Vaccine for this season: No Have you received the Pneumonia Vaccine: No ROS Obtained: Yes Systems reviewed as appropriate & no additional complaints except as documented Physical Exam General General appearance: alert and in no apparent distress Head Head exam: atraumatic and normocephalic Eye Eye exam: Present normal appearance and PERRL ENT ENT exam: Present normal exam Neck Neck exam: Present normal inspection Chest Chest inspection: Present normal inspection and symmetric chest wall rise; Absent tenderness Respiratory Respiratory exam: Present normal lung sounds bilaterally Cardiovascular Cardiovascular exam: Present regular rate Abdominal Exam Abdominal exam: Present soft and normal bowel sounds; Absent tenderness Extremities Exam Extremities exam: Present normal inspection and other (Left knee inflammation, warmth, tenderness, decreased ROM. Patient unable to flex left lower extremity. Neurovascular status intact, sensation intact) Back Exam Back exam: Present normal inspection and full ROM Neurological Exam Neurological exam: Present alert and oriented X3 Psychiatric Psychiatric exam: Present normal affect and normal mood Skin Skin exam: Present warm and dry Medical Decision Making Medical Records Screening: Per USPSTF and CDC recommendations, given the prevalence of disease in our region, it is our hospital?s policy to screen for HIV and viral Hepatitis for all patients aged 18 and over and those with ongoing risk factors. Yemi Inquiry Pt receiving controlled substance: No Vital Signs: 02/02/25 12:44 02/02/25 14:35 Temperature 98.1 F 98.1 F Temperature Source Oral Oral Pulse Rate 82 Pulse Rate [Left Radial] 80 Respiratory Rate 17 17 Blood Pressure 136/68 Blood Pressure [Right Arm] 134/59 L Blood Pressure Mean [Right Arm] 84 Blood Pressure Source Automatic Cuff Blood Pressure Source [Right Arm] Automatic Cuff Blood Pressure Position Sitting Blood Pressure Position [Right Arm] Sitting 02 Sat by Pulse Oximetry 100 Oxygen Delivery Method Room Air Room Air Lab Data Lab Results 02/02/25 13:08: WBC 6.0, RBC 3.85 L, Hgb 12.0 L, Hct 35.9 L, MCV 93.2, MCH 31.2, MCHC 33.4, RDW 13.4, Plt Count 232, MPV 9.7, Neut % (Auto) 69.0, Lymph % (Auto) 16.9, [place] % (Auto) 12.4 H, Eos % (Auto) 1.2, Baso % (Auto) 0.3, Neut # (Auto) 4.1, Lymph # (Auto) 1.0, [place] # (Auto) 0.7, Eos # (Auto) 0.1, Baso # (Auto) 0.0, ESR 93 H, Sodium 136, Potassium 4.2, Chloride 103, Carbon Dioxide 26, Anion Gap 11.2, BUN 15, Creatinine 0.80, Estimated Creat Clear 53, Estimated GFR 72, Est GFR ( Amer) 87, Glucose 93, Calcium 10.9 H, C-Reactive Protein 5.0 H 02/02/25 13:08 02/02/25 13:08 Orders (Tests/Meds): ED MEDICATIONS Discontinued Medications Generic Name Dose Route Start Last Admin Trade Name Freq PRN Reason Stop Dose Admin Oxycodone/Acetaminophen 1 each 02/02/25 12:42 02/02/25 12:59 Oxycodone 10mg W/Apap 325mg Tablet PO 02/02/25 12:43 1 each ONCE ONE Administration ORDERS Category Date Time Status Knee XR left 3 views [XR knee LT 3V] Stat Exams 02/02/25 12:39 Completed BMP [Basic Metabolic Panel] Stat Lab 02/02/25 13:08 Completed CBC w/Auto Diff [Complete Blood Count Auto Diff] Stat Lab 02/02/25 13:08 Completed CRP [C-Reactive Protein] Stat Lab 02/02/25 13:08 Completed Erythrocyte Sedimentation Rate Stat Lab 02/02/25 13:08 Completed Medical Decision Narrative: In summary, patient is a 65-year-old female PMHx hyperlipidemia, hypertensive heart disease, osteoarthritis who presents to the ED for complaints of 1 day of left knee tenderness, warmth, decreased ROM, pain. Patient states that in May 2024 she had a left knee replacement here at [facility], subsequently had another left knee replacement 1 month ago at [facility] by Dr. Machado. She reports that she has been in physical therapy, has not had any issues since her second surgery. Reports she has taken hydrocodone for her pain with minimal relief. She is unable to ambulate due to pain, decreased ROM. Patient states that her knee feels full. She denies fever, chills, body aches, chest pain, shortness of breath, abdominal pain, nausea, vomiting. Patient states she does not want to use [facility] orthopedics. Upon initial evaluation patient is alert, oriented and cooperative. She is hemodynamically stable, afebrile. Physical exam remarkable for a swollen left knee generalized, generalized tenderness, warmth, decreased ROM. Patient is unable to fully straighten, unable to flex left knee. When I attempt to assist with ROM patient begins to yell in pain. Differential diagnosis joint infection, septic arthritis, fracture, other infectious process. Discussed with patient we will obtain hematologic labs, imaging and treat with oxycodone. Reaching out to Dr. Machado's office. CBC unremarkable for any leukocytosis, stable H&H. CMP unremarkable for any actionable abnormalities. CRP 5. Spoke to Dr. Machado on the phone, reviewed labs, he advises to discharge patient and he will see the patient in clinic tomorrow. Does not advise to tap left knee. Patient will take copy of disc and labs to follow-up appointment tomorrow. Upon reassessment, patient states that her pain has improved. Given this, I feel that she is safe to be discharged home at this time. I discussed with patient to return to the ED for any worsening of condition. We discussed follow-up with Dr. Machado's office tomorrow. Patient verbalized understanding, she is hemodynamically stable. Critical Care Critical Care Time Critical Care Time: No
--- NOTE | 2025-02-02 14:11 | PC.NURSE ---
Marya on the phone with iram Guzman who stated he did not want the joint tapped but instead wanted the patient to follow up in the office tomorrow
[2025-02-02 14:20] LABS: Erythrocyte Sedimentation Rate 93 mm/hr (0-30)
[2025-02-02 14:35] VITALS: BP 136/68; PULSE 82; RESP 17; TEMP 36.7; O2SAT 100
== END 2025-02-02 14:36 | disposition home or self-care (01) ==
PROVIDERS: Nurse Practitioner; Emergency Provider Emergency Medicine; PCP Nurse Practitioner Family
DX: M25.562 Pain in left knee (principal); Z96.652 Presence of left artificial knee joint
CPT/HCPCS: 73562; 80048; 85025; 85651; 86140; 99283

== ENCOUNTER 2025-02-22 09:00 | Outpatient (RCR) | payer MEDICAID, SELFPAY | END 2025-02-24 23:59 | disposition home or self-care (01) | LOC: PT 09:00 | PROVIDERS: PCP Nurse Practitioner Family; Visit Provider Orthopaedic Surgery | DX: Z47.89 Encounter for other orthopedic aftercare (principal); Z96.652 Presence of left artificial knee joint | CPT/HCPCS: 97110; 97140; 97164; 97530 ==

== ENCOUNTER 2025-03-27 17:00 | Outpatient (RCR) | payer MEDICAID, SELFPAY | END 2025-03-27 23:59 | disposition home or self-care (01) | LOC: PT 17:00 | PROVIDERS: PCP Nurse Practitioner Family; Visit Provider Orthopaedic Surgery | DX: Z47.89 Encounter for other orthopedic aftercare (principal); Z96.652 Presence of left artificial knee joint | CPT/HCPCS: 97110; 97116; 97140; 97530 ==

== ENCOUNTER → 2025-04-07 14:00 | Outpatient (RCR) | payer MEDICAID, SELFPAY | LOC: PT 03-29 10:57 | PROVIDERS: PCP Nurse Practitioner Family; Visit Provider Orthopaedic Surgery | DX: Z47.81 Encounter for orthopedic aftercare following surgical amputation (principal); Z96.652 Presence of left artificial knee joint | CPT/HCPCS: 97110; 97116; 97530 ==